=== PATIENT | male | born 1950 | race Caucasian/White ===

== ENCOUNTER 2017-09-09 15:52 | Inpatient (IN) | payer OTHER ==
[2017-09-09] MEDS ORDERED: ONDANSETRON 4 MG/2 ML VIAL IVP ONE (16:01)
[2017-09-09] MEDS ORDERED: fentaNYL 100 MCG/2 ML INJ IVP ONE (16:01)
[2017-09-09] MEDS ORDERED: NS 500 ML IV ONE (16:01)
--- NOTE | 2017-09-09 16:09 | EDPHY ---
H & P Time Seen by Provider: 09/09/17 16:01 HPI/ROS: HPI Fall from ladder. Rib pain, hip pain. 67-year-old male by ambulance from home. He states that he was on a 12-14 foot ladder inside his house putting things away in a storage unit. He started to come down the ladder and slipped falling approximately 12-14 feet landing on his buttocks and back and striking the back of his head as he landed. He is not sure if he lost consciousness. He complains of left-sided lateral lower rib pain and left mid abdominal pain as well as left hip pain. Denies loss of sensation or weakness in his extremities. Denies any significant extremity pain. He reports having a posterior headache. ROS: Constitutional: No fever, no chills. No weakness. Eyes: No discharge. No changes in vision. ENT: No sore throat. No nasal congestion or rhinorrhea. Respiratory: No cough. No shortness of breath. Cardiac: No chest pain, no palpitations. Gastrointestinal: No abdominal pain, no vomiting, no diarrhea. Genitourinary: No hematuria. No dysuria or increased frequency with urination. Musculoskeletal: As above. No neck pain. Skin: No rashes. Neurological: He reports having a posterior headache. No focal weakness or altered sensation. Past medical history: Cirrhosis. Social history: Does not drink alcohol. Nonsmoker. Here by himself currently. Physical Exam: General Appearance: Alert, anxious but not in distress. He is in a cervical collar. This patient is responding to questions appropriately and in full sentences. This patient appears well-hydrated and well-nourished. Head: Normocephalic atraumatic. Face: Facial bones are stable on palpation. Eyes: Pupils equal and round and reactive to light, no pallor or injection. No lid erythema or edema. ENT, Mouth: Mucous membranes moist. Dentition is intact. No malocclusion of the jaw. No tongue lacerations or abrasions. Pharynx is clear. The bilateral nasal canals are clear. No septal hematoma. Respiratory: There are no retractions, lungs are clear to auscultation with good air movement bilaterally. Chest wall is stable to AP and lateral palpation. He has tenderness on palpation mid and posterior axillary line left- sided lower ribs. No ecchymosis or bony deformity noted on palpation of this area. Cardiovascular: Regular rate and rhythm. No murmur. Gastrointestinal: Abdomen is soft and with vague left upper quadrant tenderness on palpation, no masses, bowel sounds normal. Neurological: Motor sensory function is intact. Cranial nerves are normal. Cerebellar function intact. Skin: Warm and dry, no rashes. No lacerations, he has a linear superficial abrasion over the mid tibia left lower extremity. Musculoskeletal: Neck is supple and nontender. The trachea is midline. No midline cervical, thoracic, lumbar or sacral tenderness on palpation. No flank tenderness on palpation. He has tenderness on palpation lateral and medial aspect of left hip. Left hip joint does range without significant pain or impingement. Left lower extremity is neurovascularly intact. Extremities are symmetrical, full range of motion except noted. All joints in the bilateral upper and bilateral lower extremities range without pain or impingement except noted. No tenderness on palpation of the long bones in the bilateral upper and bilateral lower extremities. Psychiatric: No agitation. No depression. Database: EKG: Imaging: CT head and cervical spine: Negative for acute traumatic injury. Results discussed with staff radiologist Dr. Madi Traylor. CT chest abdomen and pelvis with contrast: Significant for left-sided rib fractures 5, 6, 7, 8, 9 posterior lateral with small associated pulmonary contusions left lower lobe. Hemorrhage noted around the spleen but no splenic laceration seen. Small amount of free fluid in the pelvis. Left-sided pubic inferior and superior ramus fractures and left and right sacral ala fractures. Results discussed with staff radiologist Dr. Madi Traylor. Procedures: Emergency department course: IV placed x2. Vital signs reviewed and are stable. Patient will be given fentanyl 50 mcg doses as needed for pain. He received 150 mcg of IV fentanyl prior to arrival. He is in a cervical collar. He will also be given 4 mg of IV Zofran for nausea. He will be sent for CT imaging as above shortly. 5:00 p.m., patient re-evaluated. school lunch monitor shows a narrow complex normal sinus rhythm with ventricular rate of 72. Blood pressure currently 129/82. Pulse oximetry 100% on 2 L by nasal cannula oxygen. Results of CT scans as noted above discussed with the patient and the family. Need for admission to our trauma service discussed. Trauma surgery paged. 5:10 p.m., discussed case with on-call trauma surgeon Dr. Octavio Winchester. He will see this patient shortly in the emergency department. He accepts the patient for admission. Cervical collar will remain in place pending his evaluation. 5:30 p.m., Dr. Winchester is at the patient's bedside. The patient's remaining emergency department course under my care has been uneventful. He was admitted to the trauma service in stable condition. Differential Diagnosis: The differential diagnosis on this patient includes but is not limited to left hip fracture, left-sided rib injuries, splenic laceration, kidney laceration. This represents a partial list of diagnoses considered. These considerations are based on history, physical exam, past history, reassessment and diagnostic testing. Smoking Status: Former smoker Constitutional: Initial Vital Signs Temperature (C) 36.8 C 09/09/17 19:15 Heart Rate 72 09/09/17 19:15 Respiratory Rate 16 09/09/17 19:15 Blood Pressure 137/64 H 09/09/17 19:15 O2 Sat (%) 98 09/09/17 19:15 Allergies/Adverse Reactions: No Known Allergies Allergy (Verified 09/09/17 17:30) Home Medications: Medication Instructions Recorded Rifaximin [Xifaxan] 550 mg PO BID 10/15/13 Herbals/Supplements -Info Only 1 ea PO BID 09/09/17 Lactulose [Enulose] 20 gm PO BID 09/09/17 Multivitamins [Multivitamin (*)] 1 each PO DAILY 09/09/17 Propranolol HCl [Inderal 10mg (*)] 10 - 20 mg PO BID PRN 09/09/17 oxyCODONE IR [Oxycodone Ir (*)] 5 - 10 mg PO BID PRN 09/09/17 Medical Decision Making - Data Points Laboratory Results: 09/09/17 17:02 Patient ABO/Rh A NEGATIVE Antibody Screen NEGATIVE Crossmatch IS Only See Detail Platelet Orders Status READY Medications Given: Acetaminophen (Tylenol) 650 mg PO Q8H BIRD Stop: 03/08/18 17:44 Last Admin: 09/12/17 04:09 Dose: Not Given Bacitracin/Polymyxin B Sulfate (Polysporin) 1 jayme TP TID BIRD Stop: 10/10/17 15:59 Last Admin: 09/11/17 22:07 Dose: 1 jayme Cyclobenzaprine HCl (Flexeril) 10 mg PO Q8H PRN PRN Reason: Spasms Stop: 03/08/18 18:45 Last Admin: 09/12/17 05:25 Dose: 10 mg Hydromorphone HCl (Dilaudid) 0.2 mg IVP Q1H PRN PRN Reason: Pain, Severe Unable to Take PO Stop: 09/19/17 17:42 Last Admin: 09/12/17 05:24 Dose: 0.2 mg Sodium Chloride (Ns) 1,000 mls @ 75 mls/hr IV CONT BIRD Stop: 03/08/18 17:59 Last Admin: 09/11/17 15:58 Dose: 1,000 mls Lactulose (Cephulac) 20 gm PO BID BIRD Stop: 03/08/18 20:59 Last Admin: 09/11/17 20:27 Dose: 20 gm Miscellaneous Information (Patch Removal) 1 ea TD DAILY21 BIRD Stop: 03/08/18 20:59 Last Admin: 09/11/17 20:28 Dose: 1 ea Miscellaneous Medication (Icy Hot Lidocaine/Menthol 4%/1% Patch) 1 patch TD DAILY BIRD Stop: 03/08/18 17:44 Last Admin: 09/11/17 08:15 Dose: 1 patch Rifaximin (Xifaxan) 550 mg PO BID BIRD PRN Reason: Protocol Stop: 10/09/17 20:59 Last Admin: 09/11/17 20:27 Dose: 550 mg Discontinued Medications Acetaminophen (Tylenol) 1,000 mg PO Q8H BIRD Stop: 03/08/18 17:44 Last Admin: 09/09/17 22:47 Dose: Not Given Famotidine (Pepcid) 20 mg PO BID BIRD Stop: 03/09/18 08:59 Last Admin: 09/11/17 08:15 Dose: 20 mg Fentanyl (Sublimaze) 50 mcg IVP EDNOW ONE Stop: 09/09/17 16:02 Last Admin: 09/09/17 16:10 Dose: 100 mcg Hydromorphone HCl (Dilaudid) 0.5 mg IVP EDNOW ONE Stop: 09/09/17 16:49 Last Admin: 09/09/17 17:01 Dose: 0.5 mg Hydromorphone HCl (Dilaudid) 0.5 mg IVP ONCE ONE Stop: 09/09/17 17:21 Last Admin: 09/09/17 18:16 Dose: 0.5 mg Sodium Chloride (Ns) 500 mls @ 0 mls/hr IV ONCE ONE; Wide Open PRN Reason: Protocol Stop: 09/09/17 16:02 Last Admin: 09/09/17 16:15 Dose: 500 mls Famotidine/Sodium Chloride (Pepcid 20 Mg (Premix)) 50 mls @ 200 mls/hr IV Q12HRS BIRD Stop: 03/08/18 20:59 Last Admin: 09/09/17 19:50 Dose: 50 mls Ketamine HCl 500 mg/ Dextrose 510 mls @ 0 mls/hr IV CONT BIRD; Per Protocol PRN Reason: Protocol Stop: 03/08/18 17:44 Last Admin: 09/11/17 04:56 Dose: 510 mls Ketorolac Tromethamine (Toradol) 30 mg IVP Q6HRS BIRD Stop: 09/14/17 17:59 Last Admin: 09/09/17 18:19 Dose: 30 mg Ketorolac Tromethamine (Toradol) 15 mg IVP Q6HRS BIRD Stop: 09/14/17 17:59 Last Admin: 09/12/17 05:24 Dose: 15 mg Ondansetron HCl (Zofran) 4 mg IVP EDNOW ONE Stop: 09/09/17 16:02 Last Admin: 09/09/17 16:10 Dose: 4 mg Departure - Departure Disposition: [facility] Inpatient Acute Clinical Impression: Fall from ladder, Multiple fractures of ribs of left side, Left pulmonary contusion, Splenic hemorrhage, Sacral fracture, closed, Bilateral pubic rami fractures
[2017-09-09] MEDS ORDERED: IOPAMIDOL (ISOVUE 370) 100 ML BTL IV ONE (16:19)
[2017-09-09 16:28] LABS: INR 1.28 (0.83-1.16); PROTIME(PATIENT) 16.2 SEC (12.0-15.0)
[2017-09-09] MEDS ORDERED: HYDROmorphONE/DILAUDID 2 MG/ML INJ IVP ONE (16:48)
[2017-09-09] MEDS ORDERED: HYDROmorphONE/DILAUDID 1 MG/ML INJ ONE (16:55)
[2017-09-09] MEDS: HYDROmorphONE/DILAUDID 1 MG/ML INJ IVP ONE ×2 (17:27→18:16)
[2017-09-09] MEDS ORDERED: NALOXONE HCL 0.4 MG/ML INJ IVP PRN (17:43)
[2017-09-09] MEDS ORDERED: ONDANSETRON 4 MG/2 ML VIAL IVP PRN (17:43)
[2017-09-09] MEDS ORDERED: ACETAMINOPHEN 500 MG TAB PO SCH (17:45)
[2017-09-09] MEDS ORDERED: PROPRANOLOL HCL 10 MG TAB PO PRN (17:53)
[2017-09-09] MEDS ORDERED: KETOROLAC 30 MG/1 ML SDV IVP SCH (18:00)
[2017-09-09] MEDS ORDERED: HYDROmorphONE/DILAUDID 1 MG/ML INJ IVP PRN (18:06)
--- NOTE | 2017-09-09 19:28 | GHP ---
[f rep st] PREOP HISTORY AND PHYSICAL DATE OF ADMISSION: 09/09/2017 He was using a ladder to put Dev decorations in an storage area which is approximately 14 feet off the ground. He was on a ladder. His foot got stuck, and he was reaching down to try to free it. The ladder toppled over backwards. He landed on a hardwood floor and felt his head bounce off the floor. There was no loss of consciousness. He yelled for his , who came in and called 911. His last meal was at 10:00 a.m. this morning, consisting of a smoothie and oatmeal. He presented as limited trauma and was seen by Hesham Torres. He has remained quite stable. His injuries include fractures of left ribs 6, 7, 8, and 9; left lower lobe contusion; a calcified granuloma near the hilum. He has cervical spondylolisthesis at C5-6 and C6-7 with mild canal narrowing and bilateral neural foraminal narrowing. He has bilateral sacral ala fractures. He has a left superior and inferior pubic ramus fracture. He has a right superior pubic ramus fracture. He has a small amount of perisplenic fluid and fluid in the pelvis. He has hepatic and splenic granulomas. He does have constipation and has cirrhosis. He is complaining of moderately severe pain with breaths. He smoked from ages 16 until present, stopping for 8 years approximately a year and a half ago. At the peak, he smoked 1/2 pack a day. He does not drink currently. He has no known drug allergies. He takes herbal supplements, multivitamins. He takes oxycodone IR for chronic pain. He takes lactulose 10 g twice a day. He takes Inderal 10 mg to 20 mg twice a day, and he takes rifaximin 550 mg daily. Lactose, propanolol, and rifaximin are because of his cirrhosis. He was in the in [place] and contracted hepatitis C. There is no history of rheumatic fever or tuberculosis. He had a piece of tempered glass partially amputate his right wrist. He is not sure whether he had a transfusion or not. The artery was injured, and some partial tendon injury occurred as well. His cirrhosis is thought to be due to a combination of the hepatitis C and alcohol use. He has had a concussion. He complains that his left eye is occasionally cloudy, etiology unclear, but it seems to resolve with the use of a topical [employer] agent. He has 4 dental implants. REVIEW OF SYSTEMS: Otherwise quite negative. There are no limits on his activities. No history of steroid use. PHYSICAL EXAMINATION: GENERAL: He is awake, alert, and pleasant. VITAL SIGNS : His initial blood pressure is 161/85, heart rate 64, respirations 16. NEUROLOGIC: He is alert and oriented x3. [place] Coma Scale is 15. 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 He can wiggle his fingers and toes. I do not detect any focal lateralizing neurologic findings. HEAD: His skull is normocephalic and atraumatic. Even though he bumped his head, there is no contusion identified. CT of his head was negative. NECK: He is in a C- collar. His CT of his neck was negative except for the chronic changes noted above. His neck is palpably normal without tenderness. He has full range of motion without tenderness. His neck is cleared at 6:30 p.m. MUSCULOSKELETAL: His right clavicle is unremarkable. His right upper extremity is unremarkable except for where he was previously repaired from the glass injury. He does have full flexor and extensor tendon function. Left upper extremity and left clavicle are unremarkable with full range of motion, though it does cause some discomfort in his chest. LUNGS: Breath sounds are equal bilaterally. CARDIAC : Shows S1, S2 to be normal. Normal split of S2 without murmurs, rubs, or gallops. ABDOMEN: Soft and nontender, with hypoactive bowel sounds. CT of the chest has the above-mentioned findings. The CT of the abdomen has the findings of the small amount of hemoperitoneum, the perisplenic fluid, as well as granulomatous changes in the liver and spleen. There are the bilateral sacral ala fractures, bilateral superior pubic ramus fractures, and left inferior pubic ramus fracture. There are abrasions over his right anterior alvarado. His hematocrit was 40. His INR was 1.2. His sodium was 143. Potassium was 3.6. His creatinine was 0.8. BUN was 13. Urine specific gravity was 1.035. There were 50-180 red cells per high-power field. His INR was 1.28. Followup hematocrit is pending. IMPRESSION: Patient with fall and multiple injuries. PLAN: ICU admission. Will use Tylenol, Toradol, ketamine, Dilaudid, and Lidoderm patch. /[id number]/MODL MTDD
[2017-09-09] MEDS: HYDROmorphONE/DILAUDID 1 MG/ML INJ IVP PRN (19:50)
[2017-09-09] MEDS: CYCLOBENZAPRINE 10 MG TAB PO PRN (19:50)
[2017-09-09] MEDS: ACETAMINOPHEN 325 MG TAB PO SCH (20:02)
[2017-09-09] MEDS: KETAMINE 500 MG in D5W 500 ML IV SCH (20:59)
[2017-09-09] MEDS ORDERED: FAMOTIDINE 20 MG/NACL 50 ML IV SCH (21:00)
[2017-09-09] MEDS: LIDOCAINE 4%/MENTHOL 1% PATCH TD SCH (22:11)
[2017-09-09] MEDS: PATCH REMOVAL 1 EA PATCH TD SCH (22:11)
[2017-09-09] MEDS: RIFAXIMIN 550 MG TAB PO SCH (22:39)
[2017-09-09] MEDS: LACTULOSE 20 GM/30 ML UDCUP PO SCH (22:39)
[2017-09-10] MEDS: KETOROLAC 30 MG/1 ML SDV IVP SCH ×4 (01:30→18:08)
[2017-09-10] MEDS: ACETAMINOPHEN 325 MG TAB PO SCH ×3 (01:59→18:08)
[2017-09-10] MEDS: HYDROmorphONE/DILAUDID 1 MG/ML INJ IVP PRN ×3 (07:20→17:58)
[2017-09-10] MEDS: LIDOCAINE 4%/MENTHOL 1% PATCH TD SCH (08:32)
[2017-09-10] MEDS: FAMOTIDINE 20 MG TAB PO SCH ×2 (08:32→22:17)
[2017-09-10] MEDS: RIFAXIMIN 550 MG TAB PO SCH ×2 (08:32→22:17)
[2017-09-10] MEDS: LACTULOSE 20 GM/30 ML UDCUP PO SCH ×2 (08:33→22:18)
--- NOTE | 2017-09-10 09:30 | ASMTCMCOM ---
CM Note CM Note Notes: 67yr old male fell from a ladder, admitted forl: multiple rib fx's, pubic fx's, sacral fx, splenic hemorrhage. He has a hx of smoking, ETOH, constipation, Hep C, cirrhosis. Patient lives with his . Therapies are working with him to determine discharge needs. CM to follow. Date Signed: 09/10/2017 09:29 AM Electronically Signed By:Lidia Castillo LCSW
--- NOTE | 2017-09-10 11:52 | PDMN ---
Medical Necessity Medical necessity: Pt meets IP criteria per MD; est los >2 mn for eval/tx of multiple rib fxs, pubic ramis fx, bilateral sacral fxs, pulmonary contusion & splenic hemorrhage r/t mechanical fall; admit to ICU for close monitoring, IV Ketamine, IVFs & therapies; hx cirrhosis; per H&P & order 09/09/17
--- NOTE | 2017-09-10 12:50 | TRAUMAPNT ---
Trauma Tertiary Progress Note New Findings: No new findingd Assessment/Plan: PAD#1 09/10/2017 Assessment: Doing well. VSS, No PTX, No Pleural fluid collection, Abdomen soft with + bowel sounds. Passing flatus. Standing with assistance. Adequate urine output Hct continues to drop. Plan: Follow up CT abd/pelvis Continue NPO, Follow HCT. No transfusion yet Subjective: I'm hungry Objective: Vital Signs Temp Pulse Resp BP Pulse Ox 37.1 C 85 17 114/58 L 100 09/10/17 04:00 09/10/17 12:00 09/10/17 12:00 09/10/17 12:00 09/10/17 12:00 Laboratory Results 09/10/17 11:40 09/09/17 20:00 09/09/17 09/10/17 09/11/17 05:59 05:59 05:59 Intake Total 1390 Output Total 420 Balance 970 PT 16.2 SEC (12.0-15.0) H 09/09/17 16:10 INR 1.28 (0.83-1.16) H 09/09/17 16:10 - C-Spine Clearance Cervical Spine Cleared: Yes Provider who Cleared Cervical Spine: Annabella Physical Exam - Physical Exam General Appearance: WD/WN, alert, mild distress Neck: non-tender, full range of motion, supple Respiratory: lungs clear, normal breath sounds, other (Chest tender in left posterior lateral region) Cardiac/Chest: regular rate, rhythm Abdomen: normal bowel sounds, non-tender, soft Male Genitalia: deferred Rectal: deferred Back: Normal inspection Skin: normal color, other (abrasion on right back) Extremities: normal range of motion, non-tender Neuro/Psych: no motor/sensory deficits, alert, normal mood/affect, oriented x 3 Time Spent w/Patient (minutes): 25
[2017-09-10 13:18] LABS: PLATELET COUNT 44 10^3/uL (150-400)
[2017-09-10] MEDS ORDERED: IOPAMIDOL (ISOVUE 370) 100 ML BTL IV ONE (14:49)
[2017-09-10] MEDS: BACITRACIN/POLYMYXIN B SULFATE 28.3 GM TUBE TP SCH ×2 (16:12→22:18)
[2017-09-10] MEDS: NS 1,000 ML IV SCH (17:58)
[2017-09-10] MEDS: PATCH REMOVAL 1 EA PATCH TD SCH (22:18)
--- NOTE | 2017-09-10 22:18 | GCON ---
[f rep st] CONSULTATION PULMONARY CRITICAL CARE CONSULTATION DATE OF CONSULTATION: 09/10/2017 REASON FOR CONSULTATION: Intensive care unit evaluation and medical management following multiple in juries related to a fall. HISTORY: The patient fell from a ladder backwards. He apparently landed on his buttocks. His head di d hit the floor, but there was no loss of consciousness. 911 was called. In the emergency department, he was found to have left-sided rib fractures of 6, 7, 8 and 9, a left lower lobe contusion, and jensen ateral pelvic fractures, including fractures of his sacrum and inferior and superior pubic ramus. The re was a small laceration of the spleen. His primary complaint was that of significant pain. He was a dmitted to the intensive care unit, on pain medications. He was placed on a ketamine drip. PAST MEDICAL HISTORY: He has a history of hepatitis C and cirrhosis. He is on medications for this, including lactulose, rifaximin, and Inderal. He has a history of chronic pain and takes oxycodone. He does have a history of alcohol use in the past. He is not currently drinking. ALLERGIES: No known drug allergies. SOCIAL HISTORY: The patient is , with a supportive family. He smoked cigarettes in the past, not currently. Current alcohol is denied. FAMILY HISTORY: Noncontributory. REVIEW OF SYSTEMS: Negative, except as outlined above. PHYSICAL EXAMINATION: GENERAL: Reveals a gentleman who appears fit, younger than his stated age. He is experiencing some pain at the time of my examination. This is on his left side. VITAL SIGNS: Blood pressure is 120/60, heart rate 80 with sinus rhythm on the monitor. Respiratory rate is 12. On 1 L o xygen, saturations are in the 90s. He is afebrile. HEENT: Unremarkable for lymphadenopathy or thyrome katie. There are no signs of trauma. Pupils are equal. Nasal cannula oxygen is in place. There is no j ugular venous distention. LUNGS: Breath sounds are diminished. He is splinting on the left. No abnorm al sounds are appreciated, but he is not moving much air. HEART: Regular in rate and rhythm. There ar e no significant murmurs. ABDOMEN: Remarkable for decreased bowel sounds and tenderness, more so on the left. Deep palpation was not attempted. : No Lew catheter is in place. EXTREMITIES: Unremarka ble. There is no edema, no tenderness. PELVIS: Not directly examined. NEUROLOGIC: Nonfocal. Cognition is intact. He did stand with a walker earlier today. DATABASE: Radiologic studies are as outlined above. Laboratory: Hematocrit is 25.6, stable from this morning, but down from 37.4 on admission. Platelets are 44,000, down from 51,000 earlier. PT is 16, with a PTT of 27. Chemistries are within normal limit s. Liver function studies are normal. Albumin is 3.3. Urinalysis on admission showed red blood cells and a high specific gravity. Blood alcohol was less than 10. ASSESSMENT: 1. Status post mechanical fall with multiple injuries as outlined above. These include rib fractures , small splenic laceration, and fractures of the pelvis. He is in significant pain secondary to these injuries, is on a ketamine drip and IV Dilaudid p.r.n. He also has a Lidoderm patch in place related to his ribs. Episodes of increased pain may be secondary to muscle spasm. Flexeril has been added. 2. Acute blood loss anemia. His hematocrit has drifted down but appears to be stable. This will be f ollowed. 3. History of cirrhosis. His regular medications as outlined above will be continued. 4. Deep vein thrombosis prophylaxis: SCDs only secondary to the risk of ongoing blood loss. 5. Gastrointestinal prophylaxis: On famotidine. 6. Metabolic: No issues currently identified. 7. Thrombocytopenia, likely related to underlying cirrhosis. CBC will be followed. PLAN AND RECOMMENDATIONS: The patient will be kept in the intensive care unit. A ketamine drip will be continued for pain, along with p.r.n. IV Dilaudid. Intravenous fluids will be given as his appetit e is poor. His usual medications will be continued, unless nausea is a significant issue. Zofran has been ordered. Laboratory and chest x-ray will be followed. Further plans and recommendations will be made based on his progress over the next 12-24 hours. /[id number]/MODL
[2017-09-11] MEDS: KETOROLAC 30 MG/1 ML SDV IVP SCH ×4 (00:01→17:15)
[2017-09-11] MEDS: ACETAMINOPHEN 325 MG TAB PO SCH ×3 (04:01→17:15)
[2017-09-11 04:38] LABS: PLATELET COUNT 37 10^3/uL (150-400)
[2017-09-11] MEDS: KETAMINE 500 MG in D5W 500 ML IV SCH (04:56)
[2017-09-11] MEDS: HYDROmorphONE/DILAUDID 1 MG/ML INJ IVP PRN ×4 (06:10→16:17)
[2017-09-11] MEDS: FAMOTIDINE 20 MG TAB PO SCH (08:15)
[2017-09-11] MEDS: LIDOCAINE 4%/MENTHOL 1% PATCH TD SCH (08:15)
[2017-09-11] MEDS: LACTULOSE 20 GM/30 ML UDCUP PO SCH ×2 (08:15→20:27)
[2017-09-11] MEDS: BACITRACIN/POLYMYXIN B SULFATE 28.3 GM TUBE TP SCH ×3 (08:15→22:07)
[2017-09-11] MEDS: RIFAXIMIN 550 MG TAB PO SCH ×2 (08:15→20:27)
--- NOTE | 2017-09-11 14:19 | ASMTCMCOM ---
CM Note CM Note Notes: Family meeting was held today with patient's , Medardo, Ronaldo, Jodi Perez, door manager and myself, case management. Patient's was in the hospital approximately 3 weeks ago and is currently in another episode of her diverticulitis. Medardo reports they have just moved back into their house from a complete remodel and they are in the proces of selling their house in [place]. Medardo is stressed and unable to cope well with patient's accident presently. She requests help with talking to patient about length of recovery he is facing and understanding for her taking time to attend to all the details of living right now without him. She states it will help patient to have a dvd player for movies and Ronaldo will make arrangements for one to be set up in his room. (Facilities can help with this) She hopes this will help patient since he cannot read due to the medicine. We also discussed d/c plan and the fact that patient will most likely need rehab. This is a relief to patient's who doesn't feel she will be equipped to handle all of his needs when he first d/c'es from the hospital. Medardo is concerned he will be a "cripple" and unable to function back at his baseline. Patient's daughter (age 24) has been through several changes as well over the past 6 months and has shingles. Medardo does not want to add to her stress levels so daughter's involvement will be limited. Medardo states her has some cognitive decline from his cirohisis, particularly short term memory function. Will convey this to patient's nurse. CM will follow for d/c needs and coordinate with patient and Medardo. Date Signed: 09/11/2017 02:18 PM Electronically Signed By:Fatoumata Irvin LCSW
--- NOTE | 2017-09-11 15:17 | TRAUMAPN ---
Trauma Progress Note Assessment/Plan: PAD#1 09/10/2017 Assessment: Doing well. VSS, No PTX, No Pleural fluid collection, Abdomen soft with + bowel sounds. Passing flatus. Standing with assistance. Adequate urine output Hct continues to drop. Plan: Follow up CT abd/pelvis Continue NPO, Follow HCT. No transfusion yet PAD#2 09/11/2017 Assessment: Hct, platelets and urine output down. Responded to platelet and PRBC transfusion. Etiology unclear - further bleeding, loss in to lab, doubt hemolysis, possibly recruitment of edema fluid is contributing. Importantly he is stable, awake and alert. He is eating and has no specific complaints. I have asked Dr. Bell to assess his pelvis from an orthopedic point of view. Plan: Continue supportive care. Subjective: I'm feeling better but its uncomfortable when I stand Objective: Vital Signs Temp Pulse Resp BP Pulse Ox 36.8 C 84 14 118/51 L 97 09/11/17 12:00 09/11/17 14:00 09/11/17 14:00 09/11/17 14:00 09/11/17 14:00 Laboratory Results 09/11/17 13:15 09/11/17 03:50 09/10/17 09/11/17 09/12/17 05:59 05:59 05:59 Intake Total 1390 3007 Output Total 420 675 Balance 970 2332 PT 16.2 SEC (12.0-15.0) H 09/09/17 16:10 INR 1.28 (0.83-1.16) H 09/09/17 16:10 - C-Spine Clearance Cervical Spine Cleared: Yes Provider who Cleared Cervical Spine: Annabella Physical Exam - Physical Exam General Appearance: WD/WN, alert, mild distress Neck: non-tender, full range of motion, supple Respiratory: lungs clear, normal breath sounds, other (left lower chest is tender) Cardiac/Chest: regular rate, rhythm Abdomen: normal bowel sounds, non-tender, soft Male Genitalia: deferred Rectal: deferred Back: Normal inspection Skin: normal color, warm/dry Neuro/Psych: no motor/sensory deficits, alert, normal mood/affect, oriented x 3 Time Spent w/Patient (minutes): 25
[2017-09-11] MEDS: NS 1,000 ML IV SCH (15:58)
--- NOTE | 2017-09-11 16:52 | PDINTPN ---
Medicare Contact Specialist Progress Note Assessment/Plan: Assessment: Status post fall from a ladder Rib fractures, pulmonary contusion. Most of his pain, at least when he is in bed, is related to his ribs. Small splenic laceration Pelvic fractures. Orthopedic consultation requested. Anemia: Hematocrit continues to drop. There is no evidence of obvious bleeding however oozing from his various fractures and splenic laceration may be playing a role. 1 unit of platelets and blood given today. Thrombocytopenia: Platelets low on admission at 51. 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 Metabolic: No issues identified. Cirrhosis: On rifaximin and lactulose, propranolol. Plan: Continue care in Pain Management in the intensive care unit. Follow CBC. Continue his routine medications for cirrhosis. Increase ambulation if okay with Orthopedics. This likely will cause increasing pain. 35 min of critical care time spent directly with the patient. Discussed with the patient and his , surgery, nursing, and the ICU multi disciplinary team. Subjective: Still with left-sided chest pain, but somewhat better today. Objective: Vital Signs Temp Pulse Resp BP Pulse Ox 36.8 C 94 14 129/66 H 97 09/11/17 12:00 09/11/17 16:00 09/11/17 16:00 09/11/17 16:00 09/11/17 16:00 Laboratory Results 09/11/17 13:15 09/11/17 03:50 09/10/17 09/11/17 09/12/17 05:59 05:59 05:59 Intake Total 1390 3007 Output Total 420 675 Balance 970 2332 PT 16.2 SEC (12.0-15.0) H 09/09/17 16:10 INR 1.28 (0.83-1.16) H 09/09/17 16:10 Laboratory Tests 09/11/17 09/11/17 09/11/17 03:50 03:50 09:42 WBC 3.49 L RBC 2.17 L Hgb 7.0 L Hct 20.5 L Plt Count 37 L 74 L Calcium 7.6 L Total Bilirubin 0.7 AST 21 Albumin 2.4 L CXR: No significant changes. Rib fractures and changes at the left base consistent with a contusion, possible small effusion Physical Exam - Physical Exam General Appearance: alert, no apparent distress EENT: other (Nasal cannula at 1 L) Neck: normal inspection (No JVD) Respiratory: lungs clear (Anteriorly), decreased breath sounds (At bases), No rales, No rhonchi Cardiac/Chest: regular rate, rhythm Abdomen: normal bowel sounds, non-tender, soft Male Genitalia: other (Decreased urine output) Skin: warm/dry, pallor Extremities: No pedal edema Neuro/Psych: no motor/sensory deficits, No cognition abnormalities ICD10 Worksheet Patient Problems: Problems Problem Status Onset Fall from ladder Acute Multiple fractures of ribs of left side Acute Left pulmonary contusion Acute Splenic hemorrhage Acute Sacral fracture, closed Acute
[2017-09-11] MEDS: CYCLOBENZAPRINE 10 MG TAB PO PRN (17:15)
[2017-09-11] MEDS: PATCH REMOVAL 1 EA PATCH TD SCH (20:28)
--- NOTE | 2017-09-11 22:28 | PDCONSULT ---
Shagger Note: Orthopaedic Consult Note DOS: 09/11/2017 HPI: Called to pt bedside in ICU by Dr. 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 Pt was moving [employer] lights and fell off a ladder. He fell backwards and landed on his back. He was admitted to the ICU. He had rib fractures and sacral fractures noted. I was consulted to evaluate his sacral fractures. He has had a ferreira catheter in but has not had any bowel incontinence. He states that moving his Left arm is difficult due to rib pain but was able to stand on his bialteral feet and possibly briefly on each leg individually earlier today. He had pelvic films done today after that mobilization. PMHx: Includes Hepatatis C and cirrhosis PSHx: Includes prior RIght arm forearm deep revascularization, nerve repair FamHx: noncontributory SocHx: smoking [place] sweet cigarettes regularly until three days ago. 0-3 cigarettes per day. Drinks alcohol, possible high volume drinker previously ROS: Was in usual good state of health prior to injury and quite active without major active issues across multiple systems. PE: AxO for name, city, date, and [place] president. Said facility was "[facility]" Conversant, but does struggle for specific words at times. Minimally confused with certain questions, but otherwise answering most questions well and coherently. Regular breathing, unlabored, in bed RUE: elevates arm above head. FROM. SILT A/R/U/M. 08/17 EPL/APB/FDS/FDP2,5/IO, 2+ radial pulse. Well healed volar forearm scar LUE: difficulty elevating arm 2/2 Left rib pain. But No TTP along length of arm. 08/17 EPL/APB/FDS/FDP2,5/IO. SILT A/R/U/M. 2+ radial pulse BLE: SILT S/S/SP/DP/T. / EHL/FHL/TA/GS/Q. 2+ DP pulses. No pain to log roll Perianal sensation intact to pin/sharp touch. Circumferential sphincter tone intact with ability to bear down. Intact bulbocavernosus reflex. TTP Bilateral pubic rami around symphysis. TTP L>R sacrum. large ecchymotic lesion along Left posterior hip/buttock that is tender, but not fluctuant. Imaging: XR pelvis shows no significant vertical shear of pelvis. <1cm displacement of sacral fractures. CT shows Left superior and inferior pubic rami fractures. Right superior ramus fracture close to symphysis. Left sacral fractures (moni 2) through ala and foramina, but inferior sacrum appears in continuity and there is minimal displacement. Right sacral ala fracture. No notable diastasis of SI or sacral fractures. A/P: 67y M p/w B sacral fractures and rami fractures and left buttock contusion - stable pelvis after mobilization: LLE Touch down weightbearing, and RLE WBAT - Monitor Left buttock wound for improvement. Does not appear to be [place]- [place] lesion, but rather large contusion without free fluid collection. - Repeat Pelvic inlet/outlet/AP films once patient more ambulatory to check on pelvic stability - Followup with me in 2-3 weeks for repeat pelvic films and to check on status
[2017-09-12] MEDS: KETOROLAC 30 MG/1 ML SDV IVP SCH ×2 (00:06→05:24)
[2017-09-12 03:28] LABS: PLATELET COUNT 50 10^3/uL (150-400)
[2017-09-12 03:35] LABS: INR 1.47 (0.83-1.16)
[2017-09-12] MEDS: ACETAMINOPHEN 325 MG TAB PO SCH ×3 (04:09→18:20)
[2017-09-12] MEDS: HYDROmorphONE/DILAUDID 1 MG/ML INJ IVP PRN ×4 (05:24→16:11)
[2017-09-12] MEDS: CYCLOBENZAPRINE 10 MG TAB PO PRN ×2 (05:25→20:06)
--- NOTE | 2017-09-12 09:04 | CPEKG ---
Heart Rate: 87 RR Interval: 690 P-R Interval: 136 QRSD Interval: 76 QT Interval: 376 QTC Interval: 453 P Callaway: 69 QRS Callaway: 52 EKG Severity - ABNORMAL ECG - EKG Impression: SINUS RHYTHM EKG Impression: MULTIPLE VENTRICULAR PREMATURE COMPLEXES EKG Impression: BORDERLINE T ABNORMALITIES, DIFFUSE LEADS Electronically Signed By: Guru Tatum 12-Sep-2017 11:37:35
[2017-09-12] MEDS: RIFAXIMIN 550 MG TAB PO SCH ×2 (09:11→21:01)
[2017-09-12] MEDS: HYDROmorphONE/DILAUDID 2 MG TAB PO PRN ×4 (09:11→23:50)
[2017-09-12] MEDS: LACTULOSE 20 GM/30 ML UDCUP PO SCH ×2 (09:11→21:01)
[2017-09-12] MEDS: LIDOCAINE 4%/MENTHOL 1% PATCH TD SCH (09:11)
[2017-09-12] MEDS: BACITRACIN/POLYMYXIN B SULFATE 28.3 GM TUBE TP SCH ×3 (09:12→23:51)
[2017-09-12] MEDS: PHYTONADIONE 2.5 MG/2.5 ML ORAL UDL PO SCH (11:05)
--- NOTE | 2017-09-12 16:17 | PDINTPN ---
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 Most of his pain, at least when he is in bed, is related to his ribs. Stable. Small splenic laceration Pelvic fractures. Orthopedic consultation requested. Anemia: Chronic plus acute blood loss. Hematocrit has dropped, 21 today, but stable. There is no evidence of obvious bleeding however oozing from his various fractures and splenic laceration likely are playing a role. Given blood and platelets yesterday. Pancytopenia/Thrombocytopenia: Platelets low on admission at 51. 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 Will give TXA Metabolic: No issues identified. Cirrhosis: On rifaximin and lactulose, propranolol. INR slightly out. Will give vitamin K. Plan: Continue care and pain management in the intensive care unit. Follow CBC. Continue his routine medications for cirrhosis. Increase ambulation, realizing this is going to be associated with more pelvic pain. Follow laboratory, H&H. Give more blood and platelets if needed. Follow x-ray intermittently at this point. 30 min of critical care time spent directly with the patient. Discussed with the patient and his , surgery, nursing, and the ICU multi disciplinary team. Subjective: Chest pain on left remains present but seems to be better. Increased pelvic pain with ambulation, as expected. Objective: Vital Signs Temp Pulse Resp BP Pulse Ox 36.7 C 93 16 110/63 94 09/12/17 12:00 09/12/17 14:00 09/12/17 14:00 09/12/17 14:00 09/12/17 14:00 Laboratory Results 09/12/17 15:53 09/12/17 03:20 09/11/17 09/12/17 09/13/17 05:59 05:59 05:59 Intake Total 3007 1749 Output Total 675 2075 Balance 2332 -326 PT 18.0 SEC (12.0-15.0) H 09/12/17 03:20 INR 1.47 (0.83-1.16) H 09/12/17 03:20 Laboratory Tests 09/12/17 09/12/17 09/12/17 03:20 03:20 03:20 WBC 2.83 L Hgb 7.4 L Hct 20.7 L Plt Count 50 L PT 18.0 H INR 1.47 H Calcium 7.4 L Total Bilirubin 0.7 AST 25 ALT 33 Ammonia Total Protein 4.6 L Albumin 2.5 L 09/12/17 07:17 WBC Hgb Hct Plt Count PT INR Calcium Total Bilirubin AST ALT Ammonia < 9.0 L Total Protein Albumin CXR: About the same, with haziness at the medial left base consistent with probable pulmonary contusion. Rib fractures per Physical Exam - Physical Exam General Appearance: alert, no apparent distress, other (Lying flat in bed) EENT: PERRL/EOMI, other (Nasal cannula at 2 L) Neck: normal inspection Respiratory: lungs clear (Anteriorly), decreased breath sounds (At bases), splinting (Cannot take a deep breath), No rales, No rhonchi Cardiac/Chest: regular rate, rhythm Abdomen: non-tender, soft, No normal bowel sounds (Decreased, present) Male Genitalia: other (Lew catheter in place, to be removed) Skin: warm/dry, pallor Extremities: No pedal edema Neuro/Psych: no motor/sensory deficits, No cognition abnormalities ICD10 Worksheet Patient Problems: Problems Problem Status Onset Bilateral pubic rami fractures Acute Fall from ladder Acute Left pulmonary contusion Acute Multiple fractures of ribs of left side Acute Sacral fracture, closed Acute Splenic hemorrhage Acute
[2017-09-12] MEDS: TRANEXAMIC ACID 650 MG TAB PO SCH ×2 (18:20→21:02)
--- NOTE | 2017-09-12 20:55 | SOAPPROG ---
SOAP Progress Note Assessment/Plan: Assessment: 67 male with multi trauma from ladder fall left rib fxs stable left lung contusion stable on cxr mutiple pelvic fxs stable but problematic for ambulation hct slowly dropping with stable vs heent ok chest clear and symmetric cor rr abd soft, nontender afebrile Plan:pt/ rehab eval/ dc ferreira/ trans to sdu 09/12/17 20:51 Objective: Vital Signs Temp Pulse Resp BP Pulse Ox 37.7 C 95 16 111/78 97 09/12/17 18:00 09/12/17 20:00 09/12/17 20:00 09/12/17 20:00 09/12/17 20:00 Laboratory Results 09/12/17 15:53 09/12/17 03:20 09/11/17 09/12/17 09/13/17 05:59 05:59 05:59 Intake Total 3007 1749 Output Total 675 2075 800 Balance 2332 -326 -800 PT 18.0 SEC (12.0-15.0) H 09/12/17 03:20 INR 1.47 (0.83-1.16) H 09/12/17 03:20 ICD10 Worksheet Patient Problems: Problems Problem Status Onset Bilateral pubic rami fractures Acute Fall from ladder Acute Left pulmonary contusion Acute Multiple fractures of ribs of left side Acute Sacral fracture, closed Acute Splenic hemorrhage Acute
[2017-09-12] MEDS: PATCH REMOVAL 1 EA PATCH TD SCH (23:51)
[2017-09-13 05:19] LABS: PLATELET COUNT 58 10^3/uL (150-400)
[2017-09-13 05:27] LABS: INR 1.36 (0.83-1.16); PROTIME(PATIENT) 16.9 SEC (12.0-15.0)
[2017-09-13] MEDS: HYDROmorphONE/DILAUDID 2 MG TAB PO PRN ×3 (05:44→17:08)
[2017-09-13] MEDS: CYCLOBENZAPRINE 10 MG TAB PO PRN ×2 (05:44→14:29)
[2017-09-13] MEDS: ACETAMINOPHEN 325 MG TAB PO SCH ×3 (06:23→21:41)
--- NOTE | 2017-09-13 08:28 | TRAUMAPN ---
Trauma Progress Note - Problem/Surgery Performed (1) Bilateral pubic rami fractures Assessment/Plan: remains hemodynamically stable with moderate soft tissue blood loss due to fractures Qualifiers: Encounter type: initial encounter (2) Fall from ladder Assessment/Plan: mechanism of injury/patient denies LOC Qualifiers: Encounter type: initial encounter Qualified Code(s): W11.XXXA - Fall on and from ladder, initial encounter (3) Multiple fractures of ribs of left side Assessment/Plan: primary source of pain at this time/not a great candidate for epidural due to thrombocytopenia Qualifiers: Encounter type: initial encounter (4) Sacral fracture, closed Qualifiers: Encounter type: initial encounter (5) Hemothorax on left Assessment/Plan: secondary to rib fractures/will need evacuation if enlarging (6) Thrombocytopenia Assessment/Plan: stable platlet count above 50K will continue to monitor (7) Cirrhosis of liver Assessment/Plan: multifactorial, Hep C + prior EtOH Qualifiers: Hepatic cirrhosis type: unspecified hepatic cirrhosis Ascites presence: without ascites Qualified Code(s): K74.60 - Unspecified cirrhosis of liver (8) LAD (lymphadenopathy), mediastinal Assessment/Plan: chronic/prior Histoplasmosis exposure in [place] (9) Splenic laceration Assessment/Plan: possible low grade lac on initial CT/small amount of peritoneal fluid Qualifiers: Encounter type: initial encounter Qualified Code(s): S36.039A - Unspecified laceration of spleen, initial encounter Assessment/Plan: continue increasing activity as tolerated/pain control and pulmonary toilet monitor H/H, platlets [employer] VTE prophylaxis for now, continue SCDs transfer to med-surg/PT + OT to continue Subjective: Ray reports pain left chest with coughing, deep breathing, movement He denies nausea/emesis/abd pain Objective: Vital Signs Temp Pulse Resp BP Pulse Ox 37.7 C 99 20 133/50 H 99 09/12/17 18:00 09/13/17 08:00 09/13/17 08:00 09/13/17 08:00 09/13/17 08:00 Laboratory Results 09/13/17 05:10 09/13/17 05:10 09/12/17 09/13/17 09/14/17 05:59 05:59 05:59 Intake Total 1749 500 Output Total 2075 800 Balance -326 -300 PT 16.9 SEC (12.0-15.0) H 09/13/17 05:10 INR 1.36 (0.83-1.16) H 09/13/17 05:10 - C-Spine Clearance Cervical Spine Cleared: Yes Provider who Cleared Cervical Spine: Annabella Physical Exam - Physical Exam General Appearance: WD/WN, moderate distress EENT: normal ENT inspection Neck: non-tender Respiratory: chest non-tender, lungs clear, decreased breath sounds Cardiac/Chest: regular rate, rhythm Abdomen: non-tender, soft Male Genitalia: deferred Rectal: deferred Skin: warm/dry Extremities: other (tender with bruising right ant tibial region) Neuro/Psych: no motor/sensory deficits, alert, normal mood/affect, oriented x 3 Time Spent w/Patient (minutes): 20
[2017-09-13] MEDS: LACTULOSE 20 GM/30 ML UDCUP PO SCH ×2 (08:56→21:41)
[2017-09-13] MEDS: RIFAXIMIN 550 MG TAB PO SCH ×2 (08:56→21:40)
[2017-09-13] MEDS: TRANEXAMIC ACID 650 MG TAB PO SCH (08:56)
[2017-09-13] MEDS: LIDOCAINE 4%/MENTHOL 1% PATCH TD SCH (08:57)
[2017-09-13] MEDS: BACITRACIN/POLYMYXIN B SULFATE 28.3 GM TUBE TP SCH ×2 (08:57→16:29)
[2017-09-13] MEDS ORDERED: TEARS/DEXTRAN 70/HYPROMELLOSE 15 ML OPHT.BTL EACHEYE PRN (11:09)
[2017-09-13] MEDS: HYDROmorphONE/DILAUDID 1 MG/ML INJ IVP PRN (11:52)
[2017-09-13] MEDS: PHYTONADIONE 2.5 MG/2.5 ML ORAL UDL PO SCH (13:34)
--- NOTE | 2017-09-13 13:42 | PDINTPN ---
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 Most of his pain, at least when he is in bed, is related to his ribs. Stable. Small splenic laceration, buttock/back hematoma Pelvic fractures. Orthopedic consultation appreciated. Anemia: Chronic anemia, plus acute blood loss. Hematocrit has dropped, 21 today, but stable. There is no evidence of obvious bleeding however oozing from his various fractures, soft tissue hematomas and splenic laceration likely playing a role. Appears to be stabilizing. Given blood and platelets 09/11. Pancytopenia/Thrombocytopenia: Platelets low on admission at 51. 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 On TXA Metabolic: No issues identified. Cirrhosis: On rifaximin and lactulose, propranolol. INR slightly high. On vitamin K. Plan: Continue care and pain management. Increase mobilization as tolerated. Continue his routine medications for cirrhosis. Follow laboratory, CBC, H&H - more blood and platelets if needed, none indicated at this time. Follow x-ray tomorrow. Can transfer to a medical-surgical bed at this point. 25 min of critical care time spent directly with the patient. Discussed with the patient and his , surgery, nursing, and the ICU multi disciplinary team. Subjective: Up in a recliner chair. Walked earlier with significant pelvic discomfort. Rib pain and back pain still present. Objective: Vital Signs Temp Pulse Resp BP Pulse Ox 36.9 C 92 20 106/86 H 99 09/13/17 12:00 09/13/17 13:30 09/13/17 12:00 09/13/17 13:30 09/13/17 13:30 Laboratory Results 09/13/17 05:10 09/13/17 05:10 09/12/17 09/13/17 09/14/17 05:59 05:59 05:59 Intake Total 1749 500 Output Total 2075 800 Balance -326 -300 PT 16.9 SEC (12.0-15.0) H 09/13/17 05:10 INR 1.36 (0.83-1.16) H 09/13/17 05:10 Laboratory Tests 09/13/17 09/13/17 05:10 05:10 PT 16.9 H INR 1.36 H Calcium 7.5 L Total Bilirubin 0.6 AST 23 ALT 41 Albumin 2.6 L Physical Exam - Physical Exam General Appearance: alert, no apparent distress EENT: PERRL/EOMI, other (Nasal cannula at 2 L) Neck: normal inspection (No JVD) Respiratory: lungs clear (Anteriorly), decreased breath sounds (At bases, left more so than right), splinting, No pleural rub Cardiac/Chest: regular rate, rhythm, extra beats Abdomen: non-tender, soft, No normal bowel sounds (Decreased, present) Male Genitalia: other (Lew catheter removed) Skin: warm/dry, pallor Extremities: No pedal edema Neuro/Psych: no motor/sensory deficits, No cognition abnormalities ICD10 Worksheet Patient Problems: Problems Problem Status Onset Fall from ladder Acute Multiple fractures of ribs of left side Acute Left pulmonary contusion Acute Splenic hemorrhage Acute Sacral fracture, closed Acute Bilateral pubic rami fractures Acute Hemothorax on left Acute Thrombocytopenia Acute Cirrhosis of liver Acute LAD (lymphadenopathy), mediastinal Acute Splenic laceration Acute
[2017-09-13] MEDS ORDERED: MAGNESIUM HYDROXIDE 30 ML UDCUP PO PRN (17:14)
[2017-09-13] MEDS ORDERED: BISACODYL 10 MG SUPP PR PRN (17:14)
[2017-09-13] MEDS: SENNOSIDES/DOCUSATE SODIUM TAB PO SCH (21:40)
[2017-09-13] MEDS: METHOCARBAMOL 500 MG TAB PO SCH (21:40)
[2017-09-13] MEDS ORDERED: ACETAMINOPHEN 325 MG TAB PO SCH (22:00)
[2017-09-14] MEDS: BACITRACIN/POLYMYXIN B SULFATE 28.3 GM TUBE TP SCH ×4 (03:45→20:36)
[2017-09-14] MEDS: PATCH REMOVAL 1 EA PATCH TD SCH ×2 (03:45→20:35)
[2017-09-14] MEDS: HYDROmorphONE/DILAUDID 2 MG TAB PO PRN ×5 (04:23→20:29)
[2017-09-14] MEDS: HYDROmorphONE/DILAUDID 1 MG/ML INJ IVP PRN ×2 (04:30→05:52)
[2017-09-14] MEDS: ACETAMINOPHEN 325 MG TAB PO SCH ×3 (05:51→20:30)
[2017-09-14] MEDS: METHOCARBAMOL 500 MG TAB PO SCH ×4 (05:51→20:30)
[2017-09-14] MEDS: LACTULOSE 20 GM/30 ML UDCUP PO SCH ×2 (08:10→20:29)
[2017-09-14] MEDS: RIFAXIMIN 550 MG TAB PO SCH ×2 (08:11→20:29)
[2017-09-14] MEDS: SENNOSIDES/DOCUSATE SODIUM TAB PO SCH ×2 (08:11→20:29)
[2017-09-14] MEDS: LIDOCAINE 4%/MENTHOL 1% PATCH TD SCH (08:12)
--- NOTE | 2017-09-14 09:11 | TRAUMAPN ---
Trauma Progress Note - Problem/Surgery Performed (1) Bilateral pubic rami fractures Assessment/Plan: Non operative management toe-touch weight-bearing with walker and assist device per orthopedic surgery. Pain control is an issue. He is now on a muscle relaxant and Dilaudid. Avoid Tylenol 2 to cirrhosis although his liver function seems to be preserved. Qualifiers: Encounter type: initial encounter (2) Cirrhosis of liver Assessment/Plan: Lannec's cirrhosis with pancytopenia. Avoid liver toxic medications in medications cleared by liver. Discussed options with patient for pain control. Qualifiers: Hepatic cirrhosis type: unspecified hepatic cirrhosis Ascites presence: without ascites Qualified Code(s): K74.60 - Unspecified cirrhosis of liver (3) Fall from ladder Assessment/Plan: Acute trauma with left-sided injuries thorax, flank and pelvis. Hematoma on the back and gluteus stable. Pain with inspiration. Chest x-ray stable. Do for chest x-ray this morning. Main issue is pain control he is weight-bearing toe-touch on affected side with walker. Pelvic x-rays to be repeated when he has been up ambulatory for several days. This will have to be readdressed tomorrow as he has not been up today. If these are unstable orthopedic surgery may recommend alternative management Qualifiers: Encounter type: initial encounter Qualified Code(s): W11.XXXA - Fall on and from ladder, initial encounter (5) Multiple fractures of ribs of left side Assessment/Plan: Pain control still seems to be an option. Ketamine was initially used with hallucinations. This will be avoided as a medication of choice for him. Continue narcotic and muscle relaxant will find out if orthopedic surgery will allow nonsteroidal anti-inflammatory in addition Qualifiers: Encounter type: initial encounter (6) Sacral fracture, closed Assessment/Plan: Pain control. Non weight-bearing fracture component no neurologic deficits Qualifiers: Encounter type: initial encounter Assessment/Plan: 67-year-old gentleman who fell from a ladder did not lose consciousness has multiple left-sided injuries with biggest concerns being pancytopenia and pain control. I believe that he also has hypersplenism and a small splenic laceration without active bleeding was also discovered. At this point with hypersplenism and his cirrhosis active transfusion can be counterproductive as he may have an immune reaction to this and he may just sequester blood products. As long as he has stable hemoglobin I would work on pain control and mobility. Importance of pulmonary toilet outlined with the patient and his nurse. All questions were addressed. Objective: Vital Signs Temp Pulse Resp BP Pulse Ox 36.6 C 72 16 103/68 97 09/14/17 08:06 09/14/17 08:06 09/14/17 08:06 09/14/17 08:06 09/14/17 08:06 Laboratory Results 09/14/17 04:15 09/13/17 05:10 09/13/17 09/14/17 09/15/17 05:59 05:59 05:59 Intake Total 500 200 Output Total 800 850 450 Balance -300 -650 -450 PT 16.9 SEC (12.0-15.0) H 09/13/17 05:10 INR 1.36 (0.83-1.16) H 09/13/17 05:10 - C-Spine Clearance Cervical Spine Cleared: Yes Provider who Cleared Cervical Spine: Annabella
--- NOTE | 2017-09-14 09:21 | ASMTCMCOM ---
CM Note CM Note Notes: Patient was transferred from ICU to yesterday, 09/13. His main issues are pain control and mobility. He is also being treated for pancytopenia, likely r/t his chronic cirrhosis and hypersplenism. Current PT/OT recs are for Inpatient Rehab. Per facility, he currently qualifies, but is not medically ready for d/c. They will reassess Saturday 09/16. Case Management will follow. Date Signed: 09/14/2017 09:20 AM Electronically Signed By:Becky Tenorio RN
[2017-09-14] MEDS: IBUPROFEN 600 MG TAB PO PRN ×2 (11:55→18:29)
[2017-09-14] MEDS: PHYTONADIONE 2.5 MG/2.5 ML ORAL UDL PO SCH (14:39)
[2017-09-15] MEDS: HYDROmorphONE/DILAUDID 2 MG TAB PO PRN ×5 (03:33→22:40)
[2017-09-15] MEDS: IBUPROFEN 600 MG TAB PO PRN ×2 (03:33→17:20)
[2017-09-15] MEDS: ACETAMINOPHEN 325 MG TAB PO SCH ×3 (06:23→21:51)
[2017-09-15] MEDS: METHOCARBAMOL 500 MG TAB PO SCH ×4 (06:23→21:51)
[2017-09-15] MEDS: BACITRACIN/POLYMYXIN B SULFATE 28.3 GM TUBE TP SCH ×3 (09:00→22:24)
[2017-09-15] MEDS: LACTULOSE 20 GM/30 ML UDCUP PO SCH ×2 (09:49→21:58)
[2017-09-15] MEDS: RIFAXIMIN 550 MG TAB PO SCH ×2 (09:49→21:51)
[2017-09-15] MEDS: SENNOSIDES/DOCUSATE SODIUM TAB PO SCH ×2 (09:49→21:50)
[2017-09-15] MEDS: LIDOCAINE 4%/MENTHOL 1% PATCH TD SCH (09:51)
--- NOTE | 2017-09-15 14:17 | TRAUMAPN ---
Trauma Progress Note Assessment/Plan: 67yo M s/p fall from ladder c L 6,7,8,9 rib fx, L pulm contusion, hemoperitoneum , jensen sup pubic rami fx, L inf pubic rami fx, jesnen sacral alar fx Neuro: Neuro intact, pain appears to be well controlled with oral and IV Dilaudid as well as ibuprofen and acetaminophen. Wean IV narcotics as tolerated Pulm: Stable on supplemental nasal cannula. Discussed the importance of pulmonary toilet today. Overall improved CV: Hemodynamically stable Abdomen: Soft, nondistended nontender, non peritoneal. Tolerating a regular diet, bowel regimen and place, has not had a bowel movement yet. Renal: Voiding, urine output appropriate. Heme: Stable Id: Afebrile Ortho: Fractures as above, per orthopedics patient is weight-bearing as tolerated to the right leg, touchdown weight-bearing as tolerated to the left leg. Had repeat pelvic inlet and outlet films today the images of which were personally reviewed which show that the pelvic fractures are stable. Dispo: Working on pain control, which is adequate. Wean IV narcotics as needed. Inpatient rehab in the next 24-48 hours. Subjective: feels better today, pain controlled. Objective: Vital Signs Temp Pulse Resp BP Pulse Ox 36.7 C 59 L 16 114/65 98 09/15/17 11:37 09/15/17 11:37 09/15/17 11:37 09/15/17 11:37 09/15/17 11:37 Laboratory Results 09/15/17 04:20 09/13/17 05:10 09/14/17 09/15/17 09/16/17 05:59 05:59 05:59 Intake Total 200 150 Output Total 850 1225 Balance -650 -1075 PT 16.9 SEC (12.0-15.0) H 09/13/17 05:10 INR 1.36 (0.83-1.16) H 09/13/17 05:10 - C-Spine Clearance Cervical Spine Cleared: Yes Provider who Cleared Cervical Spine: Annabella
--- NOTE | 2017-09-15 17:39 | SOAPPROG ---
SOAP Progress Note Assessment/Plan: Assessment: 67y M s/p fall from height p/w B sacral and pubic rami fractures Plan: - Fractures stable after continued mobilization - continue with current weightbearing restrictions - Followup in office for repeat films in 2-3 weeks (provided pt with information ) - Continue monitoring ecchymosis for improvement 09/15/17 17:35 Subjective: Patient getting around with walker, favoring Left leg well. Pain control improving. Objective: Vital Signs Temp Pulse Resp BP Pulse Ox 36.8 C 65 18 128/83 H 98 09/15/17 16:00 09/15/17 16:00 09/15/17 16:00 09/15/17 16:00 09/15/17 16:00 Laboratory Results 09/15/17 04:20 09/13/17 05:10 09/14/17 09/15/17 09/16/17 05:59 05:59 05:59 Intake Total 200 150 Output Total 850 1225 Balance -650 -1075 PT 16.9 SEC (12.0-15.0) H 09/13/17 05:10 INR 1.36 (0.83-1.16) H 09/13/17 05:10 BLE SILT S/S/SP/DP/T, left flank ecchymosis present but no fluctuance nore skin necrosis, 5/5 TA/GS/Inv/Ev, WWP. Mild pain with pelvic roll, but no cari shifting of bone. Patient able to mobilize self ICD10 Worksheet Patient Problems: Problems Problem Status Onset Bilateral pubic rami fractures Acute Cirrhosis of liver Acute Fall from ladder Acute Hemothorax on left Acute LAD (lymphadenopathy), mediastinal Acute Left pulmonary contusion Acute Multiple fractures of ribs of left side Acute Sacral fracture, closed Acute Splenic hemorrhage Acute Splenic laceration Acute Thrombocytopenia Acute
[2017-09-15] MEDS: HYDROmorphONE/DILAUDID 1 MG/ML INJ IVP PRN (21:59)
[2017-09-15] MEDS: PATCH REMOVAL 1 EA PATCH TD SCH (22:51)
[2017-09-16] MEDS: HYDROmorphONE/DILAUDID 2 MG TAB PO PRN ×2 (07:27→13:08)
[2017-09-16] MEDS: ACETAMINOPHEN 325 MG TAB PO SCH (07:28)
[2017-09-16] MEDS: METHOCARBAMOL 500 MG TAB PO SCH ×2 (07:29→13:08)
[2017-09-16 07:41] VITALS: BP 139/78
--- NOTE | 2017-09-16 09:36 | TRAUMAPN ---
Trauma Progress Note Assessment/Plan: 67yo M s/p fall from ladder c L 6,7,8,9 rib fx, L pulmonary contusion, hemoperitoneum, bilateral superior pubic rami fx, L inferior pubic rami fx, bilateral sacral alar fx S: Sitting up in chair. Pain well controlled. Tolerating regular diet. O: Alert VSS Afebrile Chest: R posterior chest dressing cdi. Lung sounds are clear, but diminished. Ecchymosis on right lateral chest Abdomen: soft, nontender, nondistended. : voiding, urine output normal Extremities: weight bearing as tolerated on R leg, toe touch weight bearing as tolerated L leg. Plan: Dispo to rehab today or tomorrow. Discussed with case management, who will work on placement to inpt rehab today. Continue to cough, deep breathe, use IS. Objective: Vital Signs Temp Pulse Resp BP Pulse Ox 36.6 C 83 15 139/78 H 97 09/16/17 07:40 09/16/17 07:40 09/16/17 07:40 09/16/17 07:40 09/16/17 07:40 Laboratory Results 09/15/17 04:20 09/13/17 05:10 09/15/17 09/16/17 09/17/17 05:59 05:59 05:59 Intake Total 150 1450 Output Total 1225 1000 Balance -1075 450 PT 16.9 SEC (12.0-15.0) H 09/13/17 05:10 INR 1.36 (0.83-1.16) H 09/13/17 05:10 - C-Spine Clearance Cervical Spine Cleared: Yes Provider who Cleared Cervical Spine: Annabella
--- NOTE | 2017-09-16 10:16 | PDIAF ---
- Diagnosis Diagnosis: trauma, rib fx's, pulm contusion, B pubic rami and sacral fractures Code Status: Full Code - Medication Management Discharge Medications: Medications to Continue on Transfer Rifaximin [Xifaxan] 550 mg PO BID 10/15/13 [Last Taken 09/08/17] Herbals/Supplements -Info Only 1 ea PO BID 09/09/17 [Last Taken 09/08/17] Lactulose [Enulose] 20 gm PO BID 09/09/17 [Last Taken 09/08/17] Multivitamins [Multivitamin (*)] 1 each PO DAILY 09/09/17 [Last Taken 09/08/17] Propranolol HCl [Inderal 10mg (*)] 10 - 20 mg PO BID PRN 09/09/17 [Last Taken ] oxyCODONE IR [Oxycodone Ir (*)] 5 - 10 mg PO BID PRN 09/09/17 [Last Taken ] Acetaminophen [Tylenol 325mg (*)] 650 mg PO 0600,1400,2200 tab 09/16/17 [Last Taken Unknown] Bacitracin/Polymyxin B Sulfate [Polysporin oint (*)] 1 jayme TP TID oint [Last Taken Unknown] HYDROmorphone HCL [Dilaudid 2 mg (*)] 2 - 4 mg PO Q4 PRN #40 09/16/17 [Last Taken Unknown] Ibuprofen [Motrin (*)] 600 mg PO Q6HRS PRN tab 09/16/17 [Last Taken Unknown] Lidocaine 4%/Menthol 1% [Icy Hot Lidocaine/Menthol 4%/1% Patch (*)] 1 patch TD DAILY #10 patch 09/16/17 [Last Taken Unknown] Methocarbamol [Robaxin 500 mg (*)] 1,000 mg PO QID #30 tab 09/16/17 [Last Taken Unknown] Sennosides/Docusate Sodium [Senokot-S] 1 - 2 tab PO BID tab 09/16/17 [Last Taken Unknown] Tears/Dextran 70/Hypromellose [Natural Balance Tears (*)] 1 drop EACHEYE Q2 PRN opht.btl 09/16/17 [Last Taken Unknown] Discharge Medications: Refer to the Discharge Home Medication list for PRN reason. PICC Care - Routine: N/A - Orders Services needed: Registered Nurse, Physical Therapy, Occupational Therapy Diet Recommendation: no restrictions on diet Diet Texture: Regular Texture Diet Activity/Weight Bearing Restrictions: LLE touchdown weight bearing. RLE weight bearing as tolerated. Additional Instructions: LLE touchdown weight bearing. RLE weight bearing as tolerated. - Follow Up Care Current Providers and Referrals: Parag Hoang MD [Medical Doctor] - follow up in 2 weeks (you will also need follow up with the trauma service. you can make an appointment with Dr. Parag Hoang. ) Patricio Bell MD [Medical Doctor] - (call for an appointment in 2-3 weeks. they will want you to have follow up films. you can ask their office if that should be done before or at your visit. ) Patient,NotPresent [Unknown] - As per Instructions
[2017-09-16] MEDS: BACITRACIN/POLYMYXIN B SULFATE 28.3 GM TUBE TP SCH (10:26)
[2017-09-16] MEDS: LACTULOSE 20 GM/30 ML UDCUP PO SCH (10:27)
[2017-09-16] MEDS: LIDOCAINE 4%/MENTHOL 1% PATCH TD SCH (10:27)
[2017-09-16] MEDS: RIFAXIMIN 550 MG TAB PO SCH (10:28)
[2017-09-16] MEDS: SENNOSIDES/DOCUSATE SODIUM TAB PO SCH (10:28)
[2017-09-16] MEDS: IBUPROFEN 600 MG TAB PO PRN (10:38)
--- NOTE | 2017-09-16 10:57 | SOAPPROG ---
SOAP Progress Note Assessment/Plan: Assessment: 67 male with multi trauma from ladder fall left rib fxs stable left lung contusion stable on cxr mutiple pelvic fxs stable but problematic for ambulation hct slowly dropping with stable vs heent ok chest clear and symmetric cor rr abd soft, nontender afebrile Plan:pt/ rehab eval/ dc ferreira/ trans to sdu 09/12/17 20:51 09/16/17 10:55 SEEN WITH MY PA ZACK LING/ PLEASE REFER TO HER NOTE PROGRESSING WELL/CHEST CLEAR AND NON TENDER/ABDOMEN SOFT AND NONTENDER/ AMBULATING WITH SOME DIFFICULTY/READY FOR REHAB Objective: Vital Signs Temp Pulse Resp BP Pulse Ox 36.6 C 83 15 139/78 H 97 09/16/17 07:40 09/16/17 07:40 09/16/17 07:40 09/16/17 07:40 09/16/17 07:40 Laboratory Results 09/15/17 04:20 09/13/17 05:10 09/15/17 09/16/17 09/17/17 05:59 05:59 05:59 Intake Total 150 1450 Output Total 1225 1000 Balance -1075 450 PT 16.9 SEC (12.0-15.0) H 09/13/17 05:10 INR 1.36 (0.83-1.16) H 09/13/17 05:10 ICD10 Worksheet Patient Problems: Problems Problem Status Onset Bilateral pubic rami fractures Acute Cirrhosis of liver Acute Fall from ladder Acute Hemothorax on left Acute LAD (lymphadenopathy), mediastinal Acute Left pulmonary contusion Acute Multiple fractures of ribs of left side Acute Sacral fracture, closed Acute Splenic hemorrhage Acute Splenic laceration Acute Thrombocytopenia Acute
--- NOTE | 2017-09-16 14:24 | ASMTCMCOM ---
CM Note CM Note Notes: Pt medically stable for d/c to [facility] inpatient rehab. Orders to be obtained via [employer]. HARLAN Lafleur called report. Transport scheduled with Bonnie Meade to bill pt, pt aware of payment requirement. Date Signed: 09/16/2017 02:23 PM Electronically Signed By:DANIEL Alvarado
--- NOTE | 2017-09-16 14:24 | ASDISCHSUM ---
Discharge Information Plan Status:Inpatient Rehab Medically Cleared to Leave: Discharge Date:09/16/2017 01:30 PM CM D/C Disposition:[facility] Acute [facility]T D/C Disposition:[facility] IP Projected Discharge Date:09/16/2017 11:00 AM Transportation at D/C:Wheelchair Van Discharge Delay Reason: Follow-Up Date:09/16/2017 11:00 AM Discharge Slot: Final Diagnosis:Fall: multipple rib fx's, pubic fx's, sacral fx, splenic hemorrhage Placement Information Referral Type:Rehabilitation Hospital Referral ID:[id number] Provider Name:[facility] Inpatient [facility] Address 1:[address] Phone Number: Address 2: Fax Number: [facility]:[place] Selection Factors: State:[place] Patient Contact Information Contact Name:ADDISON Relationship: [address] City:[place] Alternate Phone: State/Zip Code:[place] [address] Email: Financial Information Financial Class:Medicare Primary Plan Desc:MEDICARE INPATIENT Primary Plan Number:[id number] Secondary Plan Desc:[facility] Secondary Plan Number:[id number] Assessment Information [facility] CM Progress Note CM Note CM Note Notes: 67yr old male fell from a ladder, admitted forl: multiple rib fx's, pubic fx's, sacral fx, splenic hemorrhage. He has a hx of smoking, ETOH, constipation, Hep C, cirrhosis. Patient lives with his . Therapies are working with him to determine discharge needs. CM to follow. Date Signed: 09/10/2017 09:29 AM Electronically Signed By:Lidia Castillo LCSW [facility] CM Progress Note CM Note CM Note Notes: Family meeting was held today with patient's , Medardo, Ronaldo, Jodi Perez, cycle manager and myself, case management. Patient's was in the hospital approximately 3 weeks ago and is currently in another episode of her diverticulitis. Medardo reports they have just moved back into their house from a complete remodel and they are in the proces of selling their house in [place]. Medardo is stressed and unable to cope well with patient's accident presently. She requests help with talking to patient about length of recovery he is facing and understanding for her taking time to attend to all the details of living right now without him. She states it will help patient to have a dvd player for movies and Ronaldo will make arrangements for one to be set up in his room. (Facilities can help with this) She hopes this will help patient since he cannot read due to the medicine. We also discussed d/c plan and the fact that patient will most likely need rehab. This is a relief to patient's who doesn't feel she will be equipped to handle all of his needs when he first d/c'es from the hospital. Medardo is concerned he will be a "cripple" and unable to function back at his baseline. Patient's daughter (age 24) has been through several changes as well over the past 6 months and has shingles. Medardo does not want to add to her stress levels so daughter's involvement will be limited. Medardo states her has some cognitive decline from his cirohisis, particularly short term memory function. Will convey this to patient's nurse. CM will follow for d/c needs and coordinate with patient and Medardo. Date Signed: 09/11/2017 02:18 PM Electronically Signed By:Fatoumata Irvin LCSW [facility] Progress Note CM Note CM Note Notes: Patient was transferred from ICU to yesterday, 09/13. His main issues are pain control and mobility. He is also being treated for pancytopenia, likely r/t his chronic cirrhosis and hypersplenism. Current PT/OT recs are for Inpatient Rehab. Per facility, he currently qualifies, but is not medically ready for d/c. They will reassess Saturday 09/16. Case Management will follow. Date Signed: 09/14/2017 09:20 AM Electronically Signed By:Becky Tenorio RN [facility] CM Progress Note CM Note CM Note Notes: Pt medically stable for d/c to [facility] inpatient rehab. Orders to be obtained via [employer]. HARLAN Lafleur called report. Transport scheduled with [employer] to bill pt, pt aware of payment requirement. Date Signed: 09/16/2017 02:23 PM Electronically Signed By:DANIEL Alvarado Intervention Information Intervention Type:*IM-Signed Date of Service:09/16/2017 11:17 AM Patient Type:Inpatient Staff Member:Rita Melvin Hours: Discipline: Severity: Comment:
== END 2017-09-16 13:30 | DRG 964 ==
LOC: EDUNIT# → F2N 19:18 → F3N 09-13 17:33
PROVIDERS: ADMIT Surgery; ATTEND Surgery
PROC: 30233R1 Transfusion of Nonautologous Platelets into Peripheral Vein, Percutaneous Approach (ICD-10-PCS; principal; 2017-09-09)
PROC: 30233N1 Transfusion of Nonautologous Red Blood Cells into Peripheral Vein, Percutaneous Approach (ICD-10-PCS; principal; 2017-09-09)
DX: S22.42XA Multiple fractures of ribs, left side, initial encounter for closed fracture (principal); S32.592A Other specified fracture of left pubis, initial encounter for closed fracture; S32.119A Unspecified Zone I fracture of sacrum, initial encounter for closed fracture; S27.321A Contusion of lung, unilateral, initial encounter; S06.0X0A Concussion without loss of consciousness, initial encounter; S36.030A Superficial (capsular) laceration of spleen, initial encounter; S27.1XXA Traumatic hemothorax, initial encounter; D62 Acute posthemorrhagic anemia; W11.XXXA Fall on and from ladder, initial encounter; Y92.019 Unspecified place in single-family (private) house as the place of occurrence of the external cause; Y93.E9 Activity, other interior property and clothing maintenance; D61.818 Other pancytopenia; D69.6 Thrombocytopenia, unspecified; D53.9 Nutritional anemia, unspecified; G89.29 Other chronic pain; K74.60 Unspecified cirrhosis of liver; Z86.19 Personal history of other infectious and parasitic diseases; F17.210 Nicotine dependence, cigarettes, uncomplicated
CPT/HCPCS: 82947-QW; 92507-GN; 92523-GN; 96374; 97110-GP; 97116-GP; 97162-GP; 97166-GO; 97530-GO; 97530-GP; 97535-GO; G0480; G8978-GP-CL; G8979-GP-CI; G8987-GO-CL; G8988-GO-CI; G9165-GN-CJ; G9166-GN-CI; J1170; J1885; J2405; J3010; P9016; P9035; Q9967

== ENCOUNTER 2017-09-16 13:52 | Inpatient (IN) | payer OTHER ==
[2017-09-16] MEDS ORDERED: PROPRANOLOL HCL 10 MG TAB PO PRN (14:28)
[2017-09-16] MEDS ORDERED: oxyCODONE IR 5 MG TAB PO PRN (14:28)
[2017-09-16] MEDS ORDERED: IBUPROFEN 600 MG TAB PO PRN (14:28)
[2017-09-16] MEDS ORDERED: TEARS/DEXTRAN 70/HYPROMELLOSE 15 ML OPHT.BTL EACHEYE PRN (14:28)
[2017-09-16] MEDS ORDERED: HYDROmorphONE/DILAUDID 2 MG TAB PO PRN (14:28)
[2017-09-16] MEDS ORDERED: BISACODYL 10 MG SUPP PR PRN (15:51)
[2017-09-16] MEDS: oxyCODONE IR 5 MG TAB PO PRN (16:01)
[2017-09-16] MEDS: METHOCARBAMOL 500 MG TAB PO SCH ×2 (16:49→20:42)
[2017-09-16] MEDS: BACITRACIN/POLYMYXIN B SULFATE 28.3 GM TUBE TP SCH ×2 (17:00→20:55)
--- NOTE | 2017-09-16 17:14 | GHP ---
[f rep st] HISTORY AND PHYSICAL POST ADMISSION PHYSICIAN EVALUATION AND REHABILITATION TREATMENT PLAN DATE OF ADMISSION: 09/16/2017 DATE OF EVALUATION: September 16, 2017 TIME OF EVALUATION: 1505 REFERRING FACILITY: [facility]. IMPAIRMENT GROUP: 14.2 ETIOLOGIC DIAGNOSIS: Brain plus multiple fracture/amputation. DATE OF ONSET: 09/09/2017. REFERRING PHYSICAIN: Dr. Winchester. CONSULTING PHYSICIANS: He was seen in consultation by Pulmonary and Critical Care, Dr. Rees, orthopedic surgeon, Dr. Bell. REHABLITATION DIAGNOSIS: Multiple trauma and traumatic brain injury. HISTORY OF PRESENT ILLNESS: This patient had a fall approximately 14 feet from a ladder on 09/09/2017. He hit his head but denies loss of consciousness. He landed on his back and suffered left rib fractures to ribs 6, 7, 8 and 9, a left lower lobe pulmonary contusion, bilateral sacral ala fractures, left superior and inferior pubic ramus fractures, right superior pubic ramus fracture , and splenic laceration. Hospital course involved anemia requiring transfusion, thrombocytopenia which was stable, and pelvic fractures which were stable, but he is touchdown weightbearing on the left lower extremity. He had a hypoxia requiring 1-2 L of oxygen. He had pain control with opiates as well as acetaminophen and ibuprofen in the 24 hours through the end of yesterday, the day before hospital discharge, he used IV and p.o. hydromorphone with a total equivalent oxycodone dose of 104 mg, and the following 24 hours through his discharge from the hospital today using the equivalent of 88 mg. He was on oxycodone for chronic back pain prior to his injury, though he reports he had reduced his use from approximately 100 5-mg tablets per month to 40 5-mg tablets per month, and he thinks the oxycodone is more effective than the hydrocodone. On further conversation, it becomes unclear that he knows that he was not receiving oxycodone in the hospital. He had debility, needing assistance with many ADLs and with mobility, though somewhat limited by pain as well. He was found to have deficits to attention and memory. He was medically stable and ready for transfer to inpatient rehabilitation. STUDIES AND LABS IN HOSPITAL: Imaging revealed fractures discussed above. Regarding anemia, he had a tab hemoglobin of 6.9 and hematocrit of 20.8. Then he was transfused and yesterday his hemoglobin was 8.5 and his hematocrit was 24.9. Two days ago his platelet count was 61. His white blood cell count was 2.72, which is low. INR was persistently elevated possibly due to his history of liver disease. On 09/13/2017, his INR was 1.36. Serum chemistry on 09/13/2017, revealed overall normal renal function and electrolytes, though he had an elevated chloride at 112. He developed a low calcium and albumin at 7.5 and 2.6. Liver functions were normal. Urinalysis on 09/09/2017, was consistent with dehydration with an elevated specific gravity of 1.035, and there was protein, ketones and blood also found in the urine. Ethyl alcohol was undetectable in the serum on 09/09/2017. ACTIVE COMORBIDITIES: He has no active tier 1, tier 2 or tier 3 comorbidities. PAST MEDICAL HISTORY: 1. Hepatitis C for which he reports he received treatment at the [facility], and ultimately after several rounds of different medications, was able to clear the virus. 2. Hepatic cirrhosis with hepatic encephalopathy. 3. Anxiety. 4. Chronic back pain allergies. 5. Alcohol abuse/dependence, but sober for 8 years PAST SURGICAL HISTORY: He has no history of surgeries. MEDICATIONS: Prior to admission: 1. Rifaximin 550 mg p.o. twice daily. 2. Lactulose 20 g p.o. twice daily. 3. Multivitamin 1 p.o. daily. 4. Propranolol 10 to 20 mg p.o. twice daily p.r.n. anxiety. 5. Oxycodone 5 to 10 mg p.o. twice daily p.r.n. back pain. ADMISSION MEDICATIONS: 1. Acetaminophen 650 mg p.o. at 1600, 1400 and 2200. 2. Artificial Tears each eye q.2 hours p.r.n. 3. Bacitracin/polymyxin topical three times daily. 4. Ibuprofen 600 mg p.o. q.6 hours p.r.n. 5. Lactulose 20 g p.o. twice daily. 6. Methocarbamol 1000 mg p.o. four times daily. 7. Lidocaine patch. 8. Multivitamin 1 p.o. daily. 9. Oxycodone 5 to 10 mg p.o. q.3 hours p.r.n. 10. Hydromorphone 2 to 4 mg p.o. q.4 hours p.r.n. 11. Propranolol 10 to 20 mg p.o. twice daily p.r.n. anxiety. 12. Rifaximin 550 mg p.o. twice daily. 13. Senna/docusate 1 tab p.o. twice daily. ALLERGIES: There are no known drug allergies. PSYCHOSOCIAL HISTORY: He is . He lives with his in a multistory home. He thinks he can likely live on 1 level, but there are stairs to enter the house. He is a nonsmoker. He has a history of heavy alcohol use, but is no longer drinking. 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 FAMILY HISTORY: Noncontributory. REVIEW OF SYSTEMS: He reports pain approximately 8.5/10 with movement or during his ride over from [facility]. He is fairly comfortable at rest. He denies shortness of breath currently. He has an occasional cough in which he has had some hemoptysis, and when he coughs he has pain. He has constipation. There is no nausea or vomiting. He has no dysuria, difficulty urinating, or urinary frequency. He has pain in his sacral area and in his left thorax. He denies headache, vision changes, difficulty swallowing, numbness, weakness, or tingling of the extremities. Otherwise, a 10-point review of systems is negative. PHYSICAL EXAM: VITAL SIGNS: This morning in the hospital blood pressure was 139/78, heart rate was 83, respiratory rate was 15, oxygen saturation was 97% on 2 L, temperature was 36.6 degrees centigrade. His weight was 67.3 kg for a body mass index of 21.9. GENERAL: This is a well-nourished, well-developed man , appears younger than his chronologic age, lying in bed in a hospital gown cooperative and in no acute distress. HEENT: Extraocular movements are intact. Pupils are equal, round, reactive to light. Mucous membranes are moist. Dentition is in good condition. NECK: Supple. HEART: There is a regular rate and rhythm with no murmurs, rubs, or gallops. There appear to be occasional skipped beats. LUNGS: He has fine crackles in the left lower lobe. Otherwise, lungs are clear to auscultation bilaterally. ABDOMEN: Soft, nontender, nondistended with normoactive bowel sounds and no hepatosplenomegaly. EXTREMITIES: There is no cyanosis, clubbing, or edema. Radial and dorsalis pedis pulses are 2+ bilaterally. There is no calf tenderness. NEUROLOGIC: He is alert and oriented x3. Cranial nerves 2-12 are grossly intact. There is no focal weakness. Sensation is intact to light touch. Deep tendon reflexes are 2+ bilaterally at the biceps, patellar, and Achilles tendons. He is somewhat tangential. He needs assistance to arise to seated from supine, which causes him considerable pain. SKIN: There is an abrasion of the right alvarado. CURRENT LEVEL OF FUNCTION PER THE PRE-ADMISSION SCREEN: Regarding diet, feeding , and swallowing, he was on a regular diet and required set up for eating. Regarding grooming, he required setup. Dressing the upper body was done with minimal assist and lower body with moderate assist. He was continent of bladder and bowel. Bed mobility required moderate assist with voice cuing and increased time. Transfers required minimal assist with voice cuing to maintain weightbearing status. He used a front-wheeled walker. He was independent with seated balance and required minimal to moderate assist for standing balance. Endurance was fair. His gait was limited by pain. He had a mild to moderate communication deficit and mild to moderate deficits to attention and memory. There are no significant changes from the pre-existing screen on today's exam. IMPRESSION: This is a 67-year-old man who suffered a 14 foot fall off a ladder , hit his head and suffered multiple fractures, including the left ribs, bilateral sacral ala and pubic rami fractures, upper and lower on the left and upper on the right. Hospital course included the need for pain control and progressive anemia, partly due to a splenic laceration. He had a blood transfusion. He required considerable doses of opiates for pain control and was able to mobilize to a limited extent. He was otherwise stabilized and appropriate for inpatient rehabilitation. His goal is to complete a rehabilitation stay and then return home with family and supportive services. For a safe discharge he will need to achieve modified independence for ADLs and functional tasks with the least restrictive device for community distances. He will need to be medically stable regarding anemia. He will receive therapy with Physical Therapy, Occupational Therapy, and Speech and Language Pathology for 60 minutes per day for each discipline on 5-7 days of the week. His expected duration of stay is 5-7 days. It is anticipated that upon discharge he will continue to benefit from home health services, including nursing, occupational therapy, and physical therapy. PLAN: 1. Multiple trauma with pelvic fractures and left rib fractures, touchdown weightbearing status on the left lower extremity. PT and OT to optimize mobility and activities of daily living towards the modified independent level for discharge home. 2. Symptoms of TBI, though he denies loss of consciousness, with deficits to memory and attention. Assessment and treatment per Speech and Language Pathology. 3. Pain management. Will initiate morphine sustained release 15 mg at h.s. to improve his chances of sleeping through the night without being awakened by pain. He reports that he has a preference for oxycodone over hydromorphone, though hydromorphone is what he was receiving in the hospital. His total oxycodone dose equivalent yesterday was 88 mg. Will increase oxycodone to 5-15 mg q.3 hours p.r.n. We will continue acetaminophen which is appropriately dosed at less than 2 g per day given his history of liver disease. Ibuprofen will be continued for now, though there is some risk for GI ulceration. If he had a history of esophageal or gastric varices and especially variceal bleeding , ibuprofen would be contraindicated, but he does not report that history. He will have serial assessments of his pain and adjustment of medications as necessary. 4. Hepatic cirrhosis, most likely compensated, status post treatment of hepatitis C and cessation of alcohol abuse. He has some elevated bleeding risk with an elevated INR and thrombocytopenia, but neither one of those lab results have been critical. With history of hepatic encephalopathy, we will continue rifaximin and lactulose. 5. Pulmonary contusion. He will have incentive spirometry and oxygen as necessary. 6. Anemia due to likely bleeding from multiple sites, including pulmonary contusions, splenic laceration and multiple fractures. He required a transfusion yesterday. Will check a CBC tomorrow morning to ensure that his blood counts are stable. 7. Anxiety. Emotionally labile and tearful when discussing his career. He and his are under considerable stress regarding a home model, putting 1 house on the market and moving into the house. He will have counseling per [facility]. Prophylaxis. 8. Pharmacologic anticoagulation has been contraindicated as he had active bleeding and a declining hematocrit and hemoglobin. Once it is ensured that his anemia has stabilized or is improving, depending on his mobility, can consider pharmacologic anticoagulation. We will initiate sequential compression devices on his legs at night. FOLLOWUP: He is recommended to follow up with Dr. Hoang of the trauma service in approximately 2 weeks or the week of 09/30/2017. He is to follow up with orthopedic surgeon, Dr. Patricio Bell in 2-3 weeks, again, the week of 09/30 to . His primary care is at the [facility]. /[id number]/MODL MTDD
--- NOTE | 2017-09-16 17:35 | PDOREHIP ---
Admission [facility] - Admission - 3 Day Assessment Period Admission Date/Day 1: 09/16/17 Day 2: 09/17/17 Day 3: 09/18/17 - Active Diagnoses Comorbidities and Co-existing Conditions at Admission: 06283. None of the Above - Skin Conditions Unhealed Pressure Ulcer (1 or more/Stage 1 or >)-Admission: 0. No
[2017-09-16] MEDS: RIFAXIMIN 550 MG TAB PO SCH (20:40)
[2017-09-16] MEDS: ACETAMINOPHEN 325 MG TAB PO SCH (20:41)
[2017-09-16] MEDS: SENNOSIDES/DOCUSATE SODIUM TAB PO SCH (20:41)
[2017-09-16] MEDS: LACTULOSE 20 GM/30 ML UDCUP PO SCH (20:43)
[2017-09-16] MEDS: PATCH REMOVAL 1 EA PATCH TD SCH (20:57)
[2017-09-16] MEDS ORDERED: morphINE SR 15 MG TAB PO SCH (21:00)
[2017-09-16] MEDS ORDERED: Herbals/Supplements -Info Only PO SCH (21:00)
[2017-09-16] MEDS ORDERED: NON-FORMULARY NEW DRUG (Lactulose [Enulose] 20 GM) PO SCH (21:00)
[2017-09-17] MEDS: ACETAMINOPHEN 325 MG TAB PO SCH ×3 (05:36→21:20)
[2017-09-17] MEDS: METHOCARBAMOL 500 MG TAB PO SCH ×4 (05:36→21:20)
[2017-09-17] MEDS: oxyCODONE IR 5 MG TAB PO PRN ×4 (05:52→23:32)
[2017-09-17] MEDS: BACITRACIN/POLYMYXIN B SULFATE 28.3 GM TUBE TP SCH ×3 (08:02→21:27)
[2017-09-17] MEDS: LIDOCAINE 4%/MENTHOL 1% PATCH TD SCH (08:03)
[2017-09-17] MEDS: LACTULOSE 20 GM/30 ML UDCUP PO SCH ×2 (08:03→21:19)
[2017-09-17] MEDS: MULTIVITAMINS 1 EACH TAB PO SCH (08:09)
[2017-09-17] MEDS: RIFAXIMIN 550 MG TAB PO SCH ×2 (08:09→21:19)
[2017-09-17] MEDS: SENNOSIDES/DOCUSATE SODIUM TAB PO SCH ×2 (08:09→21:20)
[2017-09-17 08:10] LABS: PLATELET COUNT 108 10^3/uL (150-400)
--- NOTE | 2017-09-17 12:33 | SOAPPROG ---
SOAP Progress Note Assessment/Plan: Assessment: Multiple trauma with pelvic fractures and left rib fractures, touchdown weightbearing status on the left lower extremity. * PT and OT to optimize mobility and activities of daily living towards the modified independent level for discharge home. Symptoms of TBI, though he denies loss of consciousness, with deficits to memory and attention. Assessment and treatment per Speech and Language Pathology. Pain management. * Initiated morphine sustained release 15 mg at h.s. 09/16/2017. Inadequate pain control during the day. Increase morphine sustained release to 15 mg twice daily starting 09/17/2017. * Continue oxycodone 5-15 mg q.3 hours p.r.n. * Continue acetaminophen at 650 mg three times daily, scheduled, to remain below 2 g per day threshold in a patient with liver disease. * Continue ibuprofen p.r.n. with some caution due to bleeding risk. If he had a history of esophageal or gastric varices and especially variceal bleeding, ibuprofen would be contraindicated, but he does not report that history. He will have serial assessments of his pain and adjustment of medications as necessary. Constipation. * Continue lactulose. * Increase senna/docusate from 1 tablet twice daily to 2 tablets twice daily starting 09/17/2017 Hepatic cirrhosis, most likely compensated, status post treatment of hepatitis C and cessation of alcohol abuse. With history of hepatic encephalopathy, we will continue rifaximin and lactulose. Coagulopathy, possibly due to liver disease, versus consumption coagulopathy due to multiple injuries. Recheck PT, PTT and INR in 2 days. Pulmonary contusion. He will have incentive spirometry and oxygen as necessary. Anemia due to likely bleeding from multiple sites, including pulmonary contusions, splenic laceration and multiple fractures. He required a transfusion yesterday. * Improving on CBC 09/17/2017. Recheck in 2 days. Thrombocytopenia, resolved on CBC 6 08/2017. Prophylaxis. Pharmacologic anticoagulation has been contraindicated as he had active bleeding and a declining hematocrit and hemoglobin. Once it is ensured that his anemia has stabilized or is improving, depending on his mobility, can consider pharmacologic anticoagulation. We will initiate sequential compression devices on his legs at night. FOLLOWUP: He is recommended to follow up with Dr. Hoang of the trauma service in approximately 2 weeks or the week of 09/30/2017. He is to follow up with orthopedic surgeon, Dr. Patricio Bell in 2-3 weeks, again, the week of 09/30 to . [facility] care [facility] at [facility]. 09/17/17 12:33 Subjective: Had adequate pain control overnight but reports that he thinks he over did it this morning with physical therapy and had considerable pain. PT reports he was able to ambulate about 15 ft and that he was screaming. Has constipation. Slept well but awoke during the night and did not know where he was. He eventually was able to reorient himself. Objective: Vital Signs Temp Pulse Resp BP Pulse Ox 36.7 C 90 20 130/70 H 97 09/17/17 06:22 09/17/17 06:22 09/17/17 06:22 09/17/17 06:22 09/17/17 06:22 Laboratory Results 09/17/17 06:00 09/17/17 06:00 09/16/17 09/17/17 09/18/17 05:59 05:59 05:59 Intake Total 690 360 Output Total 200 400 Balance 490 -40 Physical Exam - Physical Exam General Appearance: WD/WN, alert, no apparent distress Respiratory: normal breath sounds, No crackles, No rhonchi, No wheezing Cardiac/Chest: regular rate, rhythm, No edema, No diastolic murmur, No systolic murmur Skin: normal color, warm/dry Neuro/Psych: no motor/sensory deficits, alert, normal mood/affect, oriented x 3 ICD10 Worksheet Patient Problems: Problems Problem Status Onset Bilateral pubic rami fractures Acute Cirrhosis of liver Acute Fall from ladder Acute Hemothorax on left Acute LAD (lymphadenopathy), mediastinal Acute Left pulmonary contusion Acute Multiple fractures of ribs of left side Acute Sacral fracture, closed Acute Splenic hemorrhage Acute Splenic laceration Acute Thrombocytopenia Acute
[2017-09-17] MEDS: morphINE SR 15 MG TAB PO SCH ×2 (13:12→21:20)
[2017-09-17] MEDS: PATCH REMOVAL 1 EA PATCH TD SCH (21:36)
[2017-09-18] MEDS: BACITRACIN/POLYMYXIN B SULFATE 28.3 GM TUBE TP SCH ×3 (05:11→20:39)
[2017-09-18] MEDS: ACETAMINOPHEN 325 MG TAB PO SCH ×3 (05:33→20:39)
[2017-09-18] MEDS: METHOCARBAMOL 500 MG TAB PO SCH ×4 (05:34→19:35)
[2017-09-18] MEDS: LIDOCAINE 4%/MENTHOL 1% PATCH TD SCH (08:01)
[2017-09-18] MEDS: LACTULOSE 20 GM/30 ML UDCUP PO SCH ×2 (08:01→19:35)
[2017-09-18] MEDS: MULTIVITAMINS 1 EACH TAB PO SCH (08:02)
[2017-09-18] MEDS: SENNOSIDES/DOCUSATE SODIUM TAB PO SCH ×2 (08:02→19:34)
[2017-09-18] MEDS: RIFAXIMIN 550 MG TAB PO SCH ×2 (08:02→19:35)
[2017-09-18] MEDS: oxyCODONE IR 5 MG TAB PO PRN ×4 (08:03→19:40)
[2017-09-18 08:59] LABS: INR 1.22 (0.83-1.16); PROTIME(PATIENT) 15.6 SEC (12.0-15.0)
[2017-09-18] MEDS: morphINE SR 15 MG TAB PO SCH ×2 (09:34→19:35)
--- NOTE | 2017-09-18 13:05 | SOAPPROG ---
SOAP Progress Note Assessment/Plan: Assessment: Multiple trauma with pelvic fractures and left rib fractures, touchdown weightbearing status on the left lower extremity. * PT and OT to optimize mobility and activities of daily living towards the modified independent level for discharge home. Symptoms of TBI, though he denies loss of consciousness, with deficits to memory and attention. Assessment and treatment per Speech and Language Pathology. Pain management. * Initiated morphine sustained release 15 mg at h.s. 09/16/2017. Inadequate pain control during the day. Increase morphine sustained release to 15 mg twice daily starting 09/17/2017. * Continue oxycodone 5-15 mg q.3 hours p.r.n. Offer prior to getting out of bed in the morning. * Continue acetaminophen at 650 mg three times daily, scheduled, to remain below 2 g per day threshold in a patient with liver disease. * Continue ibuprofen p.r.n. with some caution due to bleeding risk. If he had a history of esophageal or gastric varices and especially variceal bleeding, ibuprofen would be contraindicated, but he does not report that history. He will have serial assessments of his pain and adjustment of medications as necessary. Constipation. * Continue lactulose. * Increase senna/docusate from 1 tablet twice daily to 2 tablets twice daily starting 09/17/2017. * Bowels moved today, 09/18/2017, after physical suppository. Hepatic cirrhosis, most likely compensated, status post treatment of hepatitis C and cessation of alcohol abuse. With history of hepatic encephalopathy, we will continue rifaximin and lactulose. Coagulopathy, possibly due to liver disease, versus consumption coagulopathy due to multiple injuries. PT, PTT improving on labs 09/18/2017. Pulmonary contusion. He will have incentive spirometry and oxygen as necessary. Anemia due to likely bleeding from multiple sites, including pulmonary contusions, splenic laceration and multiple fractures. He required a transfusion yesterday. * Improving on CBC 09/17/2017. Recheck in 2 days. Thrombocytopenia improving on CBC 09/17/2017 and 09/18/2017. Prophylaxis. With improving coagulation studies and platelet count, and stable anemia, but continued greatly reduced mobility, initiate enoxaparin 40 mg subcutaneous q.day starting 09/18/2017. Continue sequential compression devices on his legs at night. FOLLOWUP: He is recommended to follow up with Dr. Hoang of the trauma service in approximately 2 weeks or the week of 09/30/2017. He is to follow up with orthopedic surgeon, Dr. Patricio Bell in 2-3 weeks, again, the week of 09/30 to . His primary care is at the [facility]. 09/18/17 13:03 Subjective: Reports that he had a rough morning with pain with morning ADLs. He said he did not get his pain medications soon enough. Finally moved his bowels today, initially after physical suppository and then several times subsequently. Objective: Vital Signs Temp Pulse Resp BP Pulse Ox 36.9 C 75 14 120/72 93 09/18/17 06:20 09/18/17 06:20 09/18/17 06:20 09/18/17 06:20 09/18/17 06:20 Laboratory Results 09/18/17 06:00 09/17/17 06:00 09/17/17 09/18/17 09/19/17 05:59 05:59 05:59 Intake Total 690 1116 340 Output Total 200 2000 Balance 490 -884 340 PT 15.6 SEC (12.0-15.0) H 09/18/17 06:00 INR 1.22 (0.83-1.16) H 09/18/17 06:00 Physical Exam - Physical Exam General Appearance: WD/WN, alert, no apparent distress Respiratory: normal breath sounds, No crackles, No rhonchi, No wheezing Cardiac/Chest: regular rate, rhythm, No edema, No diastolic murmur, No systolic murmur Skin: normal color, warm/dry, other (Abrasion right alvarado with no erythema or purulence.) Extremities: No calf tenderness, No swelling Neuro/Psych: no motor/sensory deficits, alert, normal mood/affect, oriented x 3 ICD10 Worksheet Patient Problems: Problems Problem Status Onset Bilateral pubic rami fractures Acute Cirrhosis of liver Acute Fall from ladder Acute Hemothorax on left Acute LAD (lymphadenopathy), mediastinal Acute Left pulmonary contusion Acute Multiple fractures of ribs of left side Acute Sacral fracture, closed Acute Splenic hemorrhage Acute Splenic laceration Acute Thrombocytopenia Acute
[2017-09-18] MEDS: ENOXAPARIN 40 MG/0.4 ML SYR SC SCH (13:47)
[2017-09-18] MEDS: PATCH REMOVAL 1 EA PATCH TD SCH (19:35)
[2017-09-19] MEDS: ACETAMINOPHEN 325 MG TAB PO SCH ×3 (05:48→20:02)
[2017-09-19] MEDS: METHOCARBAMOL 500 MG TAB PO SCH ×3 (05:48→17:19)
[2017-09-19] MEDS: oxyCODONE IR 5 MG TAB PO PRN ×5 (05:49→20:17)
[2017-09-19] MEDS: ENOXAPARIN 40 MG/0.4 ML SYR SC SCH (07:50)
[2017-09-19] MEDS: LIDOCAINE 4%/MENTHOL 1% PATCH TD SCH (07:51)
[2017-09-19] MEDS: morphINE SR 15 MG TAB PO SCH ×2 (07:51→20:01)
[2017-09-19] MEDS: SENNOSIDES/DOCUSATE SODIUM TAB PO SCH ×2 (07:51→20:01)
[2017-09-19] MEDS: LACTULOSE 20 GM/30 ML UDCUP PO SCH ×2 (07:52→20:01)
[2017-09-19] MEDS: RIFAXIMIN 550 MG TAB PO SCH ×2 (07:52→20:01)
[2017-09-19] MEDS: MULTIVITAMINS 1 EACH TAB PO SCH (07:52)
[2017-09-19] MEDS: BACITRACIN/POLYMYXIN B SULFATE 28.3 GM TUBE TP SCH ×3 (07:53→20:02)
--- NOTE | 2017-09-19 17:04 | SOAPPROG ---
SOAP Progress Note Assessment/Plan: Assessment: Multiple trauma with pelvic fractures and left rib fractures, touchdown weightbearing status on the left lower extremity. * PT and OT to optimize mobility and activities of daily living towards the modified independent level for discharge home. Symptoms of TBI, though he denies loss of consciousness, with deficits to memory and attention. Assessment and treatment per Speech and Language Pathology. Pain management. * Initiated morphine sustained release 15 mg at h.s. 09/16/2017. Inadequate pain control during the day. Increase morphine sustained release to 15 mg twice daily starting 09/17/2017. * Continue oxycodone 5-15 mg q.3 hours p.r.n. Offer prior to getting out of bed in the morning. * Continue acetaminophen at 650 mg three times daily, scheduled, to remain below 2 g per day threshold in a patient with liver disease. * Change ibuprofen to 600 mg p.o. 3 times a day scheduled starting 09/19/2017. * Change methocarbamol to p.r.n. He does not complain of muscle spasms. Constipation. * Continue lactulose. * Increase senna/docusate from 1 tablet twice daily to 2 tablets twice daily starting 09/17/2017. Hepatic cirrhosis, most likely compensated, status post treatment of hepatitis C and cessation of alcohol abuse. With history of hepatic encephalopathy, we will continue rifaximin and lactulose. Coagulopathy, possibly due to liver disease, versus consumption coagulopathy due to multiple injuries. PT, PTT improving on labs 09/18/2017. Pulmonary contusion. He will have incentive spirometry and oxygen as necessary. Anemia due to likely bleeding from multiple sites, including pulmonary contusions, splenic laceration and multiple fractures. He required a transfusion yesterday. * Improving on CBC 09/17/2017. Stable on labs 09/18/2017. Thrombocytopenia improving on CBC 09/17/2017 and 09/18/2017. Prophylaxis. With improving coagulation studies and platelet count, and stable anemia, but continued greatly reduced mobility, initiate enoxaparin 40 mg subcutaneous q.day starting 09/18/2017. Continue sequential compression devices on his legs at night. Initiate pantoprazole 40 mg p.o. Q.day starting 09/20/2017 due to concurrent use of enoxaparin and ibuprofen. FOLLOWUP: He is recommended to follow up with Dr. Hoang of the trauma service in approximately 2 weeks or the week of 09/30/2017. He is to follow up with orthopedic surgeon, Dr. Patricio Bell in 2-3 weeks, again, the week of 09/30 to . His primary care is at the [facility]. 09/19/17 17:01 Subjective: Complains of pain, most severe from left rib fractures. Is most notable with bed mobility and transferring, less so with ambulation using the front wheeled walker. He has not noticed any muscle spasms. He is otherwise without acute complaints. Objective: Vital Signs Temp Pulse Resp BP Pulse Ox 37.0 C 90 16 130/75 H 94 09/19/17 06:21 09/19/17 06:21 09/19/17 06:21 09/19/17 06:21 09/19/17 06:21 Laboratory Results 09/18/17 06:00 09/17/17 06:00 09/18/17 09/19/17 09/20/17 05:59 05:59 05:59 Intake Total 1116 460 360 Output Total 2000 1250 600 Balance -884 -790 -240 PT 15.6 SEC (12.0-15.0) H 09/18/17 06:00 INR 1.22 (0.83-1.16) H 09/18/17 06:00 Physical Exam - Physical Exam General Appearance: WD/WN, alert, no apparent distress Respiratory: normal breath sounds, No crackles, No rhonchi, No wheezing Cardiac/Chest: regular rate, rhythm, No diastolic murmur, No systolic murmur Skin: normal color, warm/dry Neuro/Psych: no motor/sensory deficits, alert, normal mood/affect, oriented x 3 ICD10 Worksheet Patient Problems: Problems Problem Status Onset Bilateral pubic rami fractures Acute Cirrhosis of liver Acute Fall from ladder Acute Hemothorax on left Acute LAD (lymphadenopathy), mediastinal Acute Left pulmonary contusion Acute Multiple fractures of ribs of left side Acute Sacral fracture, closed Acute Splenic hemorrhage Acute Splenic laceration Acute Thrombocytopenia Acute
[2017-09-19] MEDS: METHOCARBAMOL 500 MG TAB PO PRN (20:01)
[2017-09-19] MEDS: PATCH REMOVAL 1 EA PATCH TD SCH (20:02)
[2017-09-19] MEDS: IBUPROFEN 600 MG TAB PO SCH (20:17)
[2017-09-20] MEDS: METHOCARBAMOL 500 MG TAB PO PRN (05:53)
[2017-09-20] MEDS: oxyCODONE IR 5 MG TAB PO PRN ×5 (05:53→21:24)
[2017-09-20] MEDS: ACETAMINOPHEN 325 MG TAB PO SCH ×3 (05:53→21:28)
[2017-09-20] MEDS: LACTULOSE 20 GM/30 ML UDCUP PO SCH ×2 (08:11→20:30)
[2017-09-20] MEDS: PANTOPRAZOLE SODIUM 40 MG TAB PO SCH (08:11)
[2017-09-20] MEDS: MULTIVITAMINS 1 EACH TAB PO SCH (08:11)
[2017-09-20] MEDS: SENNOSIDES/DOCUSATE SODIUM TAB PO SCH ×2 (08:11→20:30)
[2017-09-20] MEDS: morphINE SR 15 MG TAB PO SCH ×2 (08:11→20:30)
[2017-09-20] MEDS: RIFAXIMIN 550 MG TAB PO SCH ×2 (08:11→20:30)
[2017-09-20] MEDS: IBUPROFEN 600 MG TAB PO SCH ×3 (08:12→21:28)
[2017-09-20] MEDS: ENOXAPARIN 40 MG/0.4 ML SYR SC SCH (08:12)
[2017-09-20] MEDS: LIDOCAINE 4%/MENTHOL 1% PATCH TD SCH (08:14)
--- NOTE | 2017-09-20 12:35 | SOAPPROG ---
SOAP Progress Note Assessment/Plan: Assessment: Multiple trauma with pelvic fractures and left rib fractures, touchdown weightbearing status on the left lower extremity. * Initial functional independence measure 77 on 09/20/2017. Standby assist for bed mobility. Transferring standby assist with front wheeled walker. Difficulty to comply with weight-bearing part due to left thoracic pain from rib fractures. Did a car transfer with standby assist. Grooming and hygiene with setup while seated. Upper body dressing requires minimum minimal assist to standby assist, lower body dressing requires setup to standby assist. Bathing seated with minimal assist and shower transfer with minimal assist. * Not yet working on stairs. Not working on longer ambulation due to difficulties maintaining toe-touch weight-bearing. * Continue PT and OT to optimize mobility and activities of daily living towards the modified independent level for discharge home. Symptoms of TBI, though he denies loss of consciousness, with deficits to memory and attention. Assessment and treatment per Speech and Language Pathology. Pain management. * Improved. Continue morphine SR 15 mg twice daily, oxycodone 5-15 mg q.3 hours p.r.n., acetaminophen 650 mg three times daily scheduled, ibuprofen 600 mg three times daily scheduled. * Change methocarbamol to p.r.n.. Edema, left lower extremity. DVT ruled out with ultrasound bilateral lower extremities 09/20/2017. Ibuprofen may contribute. Continue to monitor. * Check CMP to ensure no renal or hepatic decompensation. Constipation. * Continue lactulose. * Increase senna/docusate from 1 tablet twice daily to 2 tablets twice daily starting 09/17/2017. Hepatic cirrhosis, most likely compensated, status post treatment of hepatitis C and cessation of alcohol abuse. With history of hepatic encephalopathy, we will continue rifaximin and lactulose. Coagulopathy, possibly due to liver disease, versus consumption coagulopathy due to multiple injuries. PT, PTT improving on labs 09/18/2017. Pulmonary contusion. He will have incentive spirometry and oxygen as necessary. Anemia due to likely bleeding from multiple sites, including pulmonary contusions, splenic laceration and multiple fractures. He required a transfusion yesterday. * Improving on CBC 09/17/2017. Stable on labs 09/18/2017. Thrombocytopenia improving on CBC 09/17/2017 and 09/18/2017. Prophylaxis. With improving coagulation studies and platelet count, and stable anemia, but continued greatly reduced mobility, initiate enoxaparin 40 mg subcutaneous q.day starting 09/18/2017. Continue sequential compression devices on his legs at night. Initiate pantoprazole 40 mg p.o. Q.day starting 09/20/2017 due to concurrent use of enoxaparin and ibuprofen. FOLLOWUP: He is recommended to follow up with Dr. Hoang of the trauma service in approximately 2 weeks or the week of 09/30/2017. He is to follow up with orthopedic surgeon, Dr. Patricio Bell in 2-3 weeks, again, the week of 09/30 to . His primary care is at the [facility]. DISPOSITION: Attended staffing, 15 min. Discussed with case management, nursing, PT, OT, [employer]. Needs to be able to climb multiple steps to be able to return home. Set tentative discharge date of 10/01/2017. 09/20/17 12:40 Subjective: Nurse noted leg swelling this morning, greater on the left than the right lower leg. He was sent for ultrasound which ruled out DVTs. He reports pain control is improved. No cough or dyspnea. No fevers or chills. Sleeping well. Objective: Vital Signs Temp Pulse Resp BP Pulse Ox 36.9 C 70 18 114/72 92 09/20/17 08:00 09/20/17 08:00 09/20/17 08:00 09/20/17 08:00 09/20/17 08:00 Laboratory Results 09/18/17 06:00 09/17/17 06:00 09/19/17 09/20/17 09/21/17 05:59 05:59 05:59 Intake Total 460 1260 Output Total 1250 1400 Balance -790 -140 PT 15.6 SEC (12.0-15.0) H 09/18/17 06:00 INR 1.22 (0.83-1.16) H 09/18/17 06:00 - Time Spent With Patient Time Spent With Patient: Greater than 35 min floor time today, including more than 50% of time in coordination of care during staffing meeting, and counseling patient. Physical Exam - Physical Exam General Appearance: WD/WN, alert, no apparent distress Respiratory: normal breath sounds, No crackles, No rhonchi, No wheezing Cardiac/Chest: regular rate, rhythm, edema (Trace to 1+ edema left lower leg.), No diastolic murmur, No systolic murmur Abdomen: normal bowel sounds, non-tender, soft, No organomegaly, No distended Skin: normal color, warm/dry, other (Abrasion over right scapula epithelialized. ) Neuro/Psych: no motor/sensory deficits, alert, normal mood/affect, oriented x 3 ICD10 Worksheet Patient Problems: Problems Problem Status Onset Bilateral pubic rami fractures Acute Cirrhosis of liver Acute Fall from ladder Acute Hemothorax on left Acute LAD (lymphadenopathy), mediastinal Acute Left pulmonary contusion Acute Multiple fractures of ribs of left side Acute Sacral fracture, closed Acute Splenic hemorrhage Acute Splenic laceration Acute Thrombocytopenia Acute
[2017-09-20] MEDS: BACITRACIN/POLYMYXIN B SULFATE 28.3 GM TUBE TP SCH (12:38)
[2017-09-20] MEDS: PATCH REMOVAL 1 EA PATCH TD SCH (21:31)
[2017-09-21] MEDS: ACETAMINOPHEN 325 MG TAB PO SCH ×3 (05:44→22:01)
[2017-09-21] MEDS: oxyCODONE IR 5 MG TAB PO PRN ×3 (07:25→15:00)
[2017-09-21] MEDS: SENNOSIDES/DOCUSATE SODIUM TAB PO SCH ×2 (08:34→20:19)
[2017-09-21] MEDS: IBUPROFEN 600 MG TAB PO SCH ×3 (08:34→22:01)
[2017-09-21] MEDS: MULTIVITAMINS 1 EACH TAB PO SCH (08:34)
[2017-09-21] MEDS: morphINE SR 15 MG TAB PO SCH ×2 (08:34→20:19)
[2017-09-21] MEDS: RIFAXIMIN 550 MG TAB PO SCH ×2 (08:34→20:19)
[2017-09-21] MEDS: ENOXAPARIN 40 MG/0.4 ML SYR SC SCH (08:35)
[2017-09-21] MEDS: LIDOCAINE 4%/MENTHOL 1% PATCH TD SCH (08:35)
[2017-09-21] MEDS: PANTOPRAZOLE SODIUM 40 MG TAB PO SCH (08:35)
[2017-09-21] MEDS: LACTULOSE 20 GM/30 ML UDCUP PO SCH ×2 (08:35→20:19)
--- NOTE | 2017-09-21 13:09 | HOSPPROG ---
Hospitalist Progress Note Assessment/Plan: Assessment: 67 yo M p/w traumatic fall resulting in rib and pelvic fractures Plan: # Multiple trauma with pelvic fractures and left rib fractures, touchdown weightbearing status on the left lower extremity. -pain well controlled, oxy IR PRN + PRN tylenol/NSAID + PRN robaxin + MS 15 bid -f/u Dr. Hoang in 1 week, Dr. 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 No DVT on US, no further w/u indicated -suspect iatrogenic w/ recent hospitalization and underlying cirrhosis -patient is naturesing well, no indication for diuretic at this time -counseled patient that he may experience more rapid fluid mobilization by elevating legs more when he is in bed, using TEDs continuously, and continuing SCDs when in bed -liver panel unremarkable, Cr wnl # Constipation. Alleviated w/ stool softener, continue -full bowel regimen ordered PRN # Hepatic cirrhosis, most likely compensated, status post treatment of hepatitis C and cessation of alcohol abuse. With history of hepatic encephalopathy, we will continue rifaximin and lactulose. -diuretic may be useful to maintain neutral fluid balance in the future, but, w / his mobility limitations s/p fall, will hold on starting a diuretic that would necessitate more frequent trips to bathroom -recommend outpt GI or PCP f/u 1 week from discharge # Coagulopathy, possibly due to liver disease, versus consumption coagulopathy due to multiple injuries. PT, PTT improving on labs 09/18/2017. # Pulmonary contusion. He will have incentive spirometry and oxygen as necessary. # Anemia due to likely bleeding from multiple sites, including pulmonary contusions, splenic laceration and multiple fractures. He required a transfusion -stable 09/18 # Thrombocytopenia improving on CBC 09/17/2017 and 09/18/2017. Prophylaxis. High risk, lovenox 40 Diet. Regular Code. Full Dispo. ADD 10/01, requires ongoing therapy Subjective: patient reports ongoing edema, no pain in legs, moved bowels this AM Objective: Vital Signs Temp Pulse Resp BP Pulse Ox 36.6 C 64 16 132/80 H 93 09/21/17 05:49 09/21/17 05:49 09/21/17 05:49 09/21/17 06:02 09/21/17 05:49 Laboratory Results 09/18/17 06:00 09/20/17 13:48 09/20/17 09/21/17 09/22/17 05:59 05:59 05:59 Intake Total 1260 1669 300 Output Total 1400 630 Balance -140 1039 300 PT 15.6 SEC (12.0-15.0) H 09/18/17 06:00 INR 1.22 (0.83-1.16) H 09/18/17 06:00 - Physical Exam Constitutional: no apparent distress, appears nourished, not in pain, No uncomfortable Cardiovascular: regular rate and rhythym, no murmur, rub, or gallop, edema (1+ LLE, trace RLE) Respiratory: no respiratory distress, no rales or rhonchi, clear to auscultation , reduced air movement (bilat bases) Gastrointestinal: normoactive bowel sounds, soft, non-tender abdomen, no palpable masses, No distension Neurologic: AAOx3 Psychiatric: interacting appropriately, not anxious, not encephalopathic, thought process linear ICD10 Worksheet Patient Problems: Problems Problem Status Onset Fall from ladder Acute Multiple fractures of ribs of left side Acute Left pulmonary contusion Acute Splenic hemorrhage Acute Sacral fracture, closed Acute Bilateral pubic rami fractures Acute Hemothorax on left Acute Thrombocytopenia Acute Cirrhosis of liver Acute LAD (lymphadenopathy), mediastinal Acute Splenic laceration Acute
[2017-09-21] MEDS ORDERED: MAGNESIUM HYDROXIDE 30 ML UDCUP PO PRN (14:53)
[2017-09-21] MEDS ORDERED: POLYETHYLENE GLYCOL 3350 17 GM PKT PO PRN (14:53)
[2017-09-21] MEDS: PRESERVISION AREDS2 FORMULA EYE VIT 1 EACH PO SCH ×2 (16:36→19:14)
[2017-09-22] MEDS: ACETAMINOPHEN 325 MG TAB PO SCH ×3 (06:31→22:37)
[2017-09-22] MEDS: oxyCODONE IR 5 MG TAB PO PRN ×5 (06:32→20:55)
[2017-09-22] MEDS: METHOCARBAMOL 500 MG TAB PO PRN (06:32)
[2017-09-22] MEDS: SENNOSIDES/DOCUSATE SODIUM TAB PO SCH ×2 (08:35→21:26)
[2017-09-22] MEDS: PRESERVISION AREDS2 FORMULA EYE VIT 1 EACH PO SCH ×2 (08:35→17:13)
[2017-09-22] MEDS: LACTULOSE 20 GM/30 ML UDCUP PO SCH ×2 (08:35→21:00)
[2017-09-22] MEDS: MULTIVITAMINS 1 EACH TAB PO SCH (08:35)
[2017-09-22] MEDS: RIFAXIMIN 550 MG TAB PO SCH ×2 (08:35→21:26)
[2017-09-22] MEDS: PANTOPRAZOLE SODIUM 40 MG TAB PO SCH (08:36)
[2017-09-22] MEDS: PATCH REMOVAL 1 EA PATCH TD SCH ×2 (08:38→21:46)
[2017-09-22] MEDS: LIDOCAINE 4%/MENTHOL 1% PATCH TD SCH (08:38)
[2017-09-22] MEDS: ENOXAPARIN 40 MG/0.4 ML SYR SC SCH (08:39)
[2017-09-22] MEDS: morphINE SR 15 MG TAB PO SCH ×2 (08:41→21:27)
[2017-09-22] MEDS: IBUPROFEN 600 MG TAB PO SCH ×3 (08:47→21:27)
--- NOTE | 2017-09-22 12:09 | HOSPPROG ---
Hospitalist Progress Note Assessment/Plan: Assessment: 67 yo M p/w traumatic fall resulting in rib and pelvic fractures Plan: # Multiple trauma with pelvic fractures and left rib fractures, touchdown weightbearing status on the left lower extremity. -pain well controlled, oxy IR PRN + PRN tylenol/NSAID + PRN robaxin + MS 15 bid -f/u Dr. Hoang in 1 week, Dr. Bell 2 weeks -counseled patient extensively that his pelvic fractures, while they may cause significant inguinal pain w/ therapy, are not compromising his hip joints, and he will have repeat imaging to demonstrate alignment when he follows up w/ Dr. Bell # TBI. Mild ongoing word finding difficulty -ongoing [employer]/Cog therapy # Chronic pain w/ continuous opiate dependency. Patient reports he has electively weaned down to 40 tabs opiate monthly, reports good pain mgmt here, patient is not over-medicating, but PCP will want to monitor Rx usage as outpt to ensure he is weaning as he recovers # Edema, left lower extremity. No DVT on US, no further w/u indicated -suspect iatrogenic w/ recent hospitalization and underlying cirrhosis -patient is naturesing well, no indication for diuretic at this time -patient amenable to TEDs, elevate when in bed # Constipation. Alleviated w/ stool softener, continue -full bowel regimen ordered PRN # Hepatic cirrhosis, most likely compensated, status post treatment of hepatitis C and cessation of alcohol abuse. With history of hepatic encephalopathy, we will continue rifaximin and lactulose. -patient had CT abd w/ IV contrast on 09/09 and 09/10, demonstrating cirrhosis and portal HTN -diuretic may be useful to maintain neutral fluid balance in the future, but, w / his mobility limitations s/p fall, will hold on starting a diuretic that would necessitate more frequent trips to bathroom, would rec aldactone/lasix as outpatient -recommend establishing him w/ outpt hepatology # Coagulopathy, possibly due to liver disease, versus consumption coagulopathy due to multiple injuries. PT, PTT improving on labs 09/18/2017. # Pulmonary contusion. He will have incentive spirometry and oxygen as necessary. # Anemia due to likely bleeding from multiple sites, including pulmonary contusions, splenic laceration and multiple fractures. He required a transfusion -stable 09/18 # Thrombocytopenia improving on CBC 09/17/2017 and 09/18/2017. Prophylaxis. High risk, lovenox 40 Diet. Regular Code. Full Dispo. ADD 10/01, requires ongoing therapy; patient would like to discuss discharge plan/timeline w/ Dr. León and therapy team this week, as he is making active structural adaptations to his home (stair rails) in preparation of return home Subjective: reports pain at approx 9 stairs, patient worried about healing of his pelvic fxr, amenable to TEDs Objective: Vital Signs Temp Pulse Resp BP Pulse Ox 36.8 C 77 16 135/85 H 93 09/22/17 06:16 09/22/17 06:16 09/22/17 06:16 09/22/17 06:16 09/22/17 06:16 Laboratory Results 09/18/17 06:00 09/20/17 13:48 09/21/17 09/22/17 09/23/17 05:59 05:59 05:59 Intake Total 1669 1365 270 Output Total 630 950 310 Balance 1039 415 -40 PT 15.6 SEC (12.0-15.0) H 09/18/17 06:00 INR 1.22 (0.83-1.16) H 09/18/17 06:00 - Time Spent With Patient Time Spent with Patient: greater than 35 minutes Time Spent with Patient: Greater than 35 minutes spent on this patients care, greater than 50% of time spent counseling, educating, and coordinating care regarding the above mentioned plan. - Physical Exam Constitutional: no apparent distress, appears nourished, not in pain, No uncomfortable Neurologic: AAOx3, No weakness (motor 5/5 bilat LE hip flexion w/o pain), No facial droop Psychiatric: not anxious, not encephalopathic, other (intermittent mild word- finding difficulty), No agitated ICD10 Worksheet Patient Problems: Problems Problem Status Onset Bilateral pubic rami fractures Acute Cirrhosis of liver Acute Fall from ladder Acute Hemothorax on left Acute LAD (lymphadenopathy), mediastinal Acute Left pulmonary contusion Acute Multiple fractures of ribs of left side Acute Sacral fracture, closed Acute Splenic hemorrhage Acute Splenic laceration Acute Thrombocytopenia Acute
[2017-09-23] MEDS: oxyCODONE IR 5 MG TAB PO PRN ×4 (04:10→17:19)
[2017-09-23] MEDS: ACETAMINOPHEN 325 MG TAB PO SCH ×3 (05:29→22:03)
[2017-09-23] MEDS: METHOCARBAMOL 500 MG TAB PO PRN ×2 (06:38→22:03)
[2017-09-23] MEDS: PRESERVISION AREDS2 FORMULA EYE VIT 1 EACH PO SCH ×2 (08:37→17:17)
[2017-09-23] MEDS: LACTULOSE 20 GM/30 ML UDCUP PO SCH ×2 (08:37→20:18)
[2017-09-23] MEDS: IBUPROFEN 600 MG TAB PO SCH (08:37)
[2017-09-23] MEDS: LIDOCAINE 4%/MENTHOL 1% PATCH TD SCH (08:37)
[2017-09-23] MEDS: morphINE SR 15 MG TAB PO SCH ×2 (08:37→20:17)
[2017-09-23] MEDS: SENNOSIDES/DOCUSATE SODIUM TAB PO SCH ×2 (08:37→20:19)
[2017-09-23] MEDS: PANTOPRAZOLE SODIUM 40 MG TAB PO SCH (08:37)
[2017-09-23] MEDS: RIFAXIMIN 550 MG TAB PO SCH ×2 (08:38→20:18)
[2017-09-23] MEDS: MULTIVITAMINS 1 EACH TAB PO SCH (08:38)
[2017-09-23] MEDS: ENOXAPARIN 40 MG/0.4 ML SYR SC SCH (08:38)
--- NOTE | 2017-09-23 12:10 | SOAPPROG ---
SOAP Progress Note Assessment/Plan: Assessment: Multiple trauma with pelvic fractures and left rib fractures, touchdown weightbearing status on the left lower extremity. * Initial functional independence measure 77 on 09/20/2017. Standby assist for bed mobility. Transferring standby assist with front wheeled walker. Difficulty to comply with weight-bearing part due to left thoracic pain from rib fractures. Did a car transfer with standby assist. Grooming and hygiene with setup while seated. Upper body dressing requires minimum minimal assist to standby assist, lower body dressing requires setup to standby assist. Bathing seated with minimal assist and shower transfer with minimal assist. * Has climbed and descended 9 stairs with left-sided crutch and right-sided rail. Not working on longer distance ambulation due to difficulties maintaining toe-touch weight-bearing. * Continue PT and OT to optimize mobility and activities of daily living towards the modified independent level for discharge home. Symptoms of TBI, though he denies loss of consciousness, with deficits to memory and attention. Assessment and treatment per Speech and Language Pathology. Pain management. * Improved. Continue morphine SR 15 mg twice daily, oxycodone 5-15 mg q.3 hours p.r.n., acetaminophen 650 mg three times daily scheduled. * Unclear if scheduled ibuprofen 600 mg three times daily has helped. No significant decrease in opiate use. Will change ibuprofen to p.r.n. * Change methocarbamol to p.r.n.. Using occasionally, approximately once per day. Edema, left lower extremity. DVT ruled out with ultrasound bilateral lower extremities 09/20/2017. Ibuprofen may contribute. Continue to monitor. * CMP 09/20/2017 showed no renal or hepatic decompensation. Constipation. * Continue lactulose. * Increase senna/docusate from 1 tablet twice daily to 2 tablets twice daily starting 09/17/2017. Hepatic cirrhosis, most likely compensated, status post treatment of hepatitis C and cessation of alcohol abuse. With history of hepatic encephalopathy, we will continue rifaximin and lactulose. Coagulopathy, possibly due to liver disease, versus consumption coagulopathy due to multiple injuries. PT, PTT improving on labs 09/18/2017. Pulmonary contusion. He will have incentive spirometry and oxygen as necessary. Anemia due to likely bleeding from multiple sites, including pulmonary contusions, splenic laceration and multiple fractures. He required a transfusion yesterday. * Improving on CBC 09/17/2017. Stable on labs 09/18/2017. Thrombocytopenia improving on CBC 09/17/2017 and 09/18/2017. Prophylaxis. With improving coagulation studies and platelet count, and stable anemia, but continued greatly reduced mobility, initiated enoxaparin 40 mg subcutaneous q.day starting 09/18/2017. Continue sequential compression devices on his legs at night. Initiated pantoprazole 40 mg p.o. Q.day starting 2017 due to concurrent use of enoxaparin and ibuprofen. FOLLOWUP: He is recommended to follow up with Dr. Hoang of the trauma service in approximately 2 weeks or the week of 09/30/2017. He is to follow up with orthopedic surgeon, Dr. Patricio Bell in 2-3 weeks, again, the week of 09/30 to . His primary care is at the [facility]. DISPOSITION: Needs to be able to climb multiple steps to be able to return home. Set tentative discharge date of 10/01/2017. 09/23/17 12:03 Subjective: Increased pain today after increased activity yesterday, including climbing and descending 9 steps. Otherwise without planes. Sleeping well. No fevers or chills. Pain is equally significant in left thorax from rib fractures and in pelvis from pelvic fractures. Objective: Vital Signs Temp Pulse Resp BP Pulse Ox 36.5 C 59 L 16 136/83 H 95 09/23/17 06:38 09/23/17 06:38 09/23/17 06:38 09/23/17 06:38 09/23/17 06:38 Laboratory Results 09/18/17 06:00 09/20/17 13:48 09/22/17 09/23/17 09/24/17 05:59 05:59 05:59 Intake Total 1365 1310 356 Output Total 950 310 Balance 415 1000 356 PT 15.6 SEC (12.0-15.0) H 09/18/17 06:00 INR 1.22 (0.83-1.16) H 09/18/17 06:00 Physical Exam - Physical Exam General Appearance: WD/WN, alert, no apparent distress Respiratory: normal breath sounds, No crackles, No rhonchi, No wheezing Cardiac/Chest: regular rate, rhythm, edema (Trace on left lower extremity pretibial), No diastolic murmur, No systolic murmur Skin: normal color, warm/dry Neuro/Psych: no motor/sensory deficits, alert, normal mood/affect, oriented x 3 ICD10 Worksheet Patient Problems: Problems Problem Status Onset Bilateral pubic rami fractures Acute Cirrhosis of liver Acute Fall from ladder Acute Hemothorax on left Acute LAD (lymphadenopathy), mediastinal Acute Left pulmonary contusion Acute Multiple fractures of ribs of left side Acute Sacral fracture, closed Acute Splenic hemorrhage Acute Splenic laceration Acute Thrombocytopenia Acute
[2017-09-23] MEDS: PATCH REMOVAL 1 EA PATCH TD SCH (20:21)
[2017-09-23] MEDS: IBUPROFEN 600 MG TAB PO PRN (22:03)
[2017-09-24] MEDS: ACETAMINOPHEN 325 MG TAB PO SCH (22:36)
[2017-09-25] MEDS: ACETAMINOPHEN 325 MG TAB PO SCH ×5 (06:42→20:22)
[2017-09-25] MEDS: METHOCARBAMOL 500 MG TAB PO PRN ×2 (06:43→19:26)
[2017-09-25] MEDS: oxyCODONE IR 5 MG TAB PO PRN ×4 (06:43→19:27)
[2017-09-25] MEDS: ENOXAPARIN 40 MG/0.4 ML SYR SC SCH ×2 (08:01→15:44)
[2017-09-25] MEDS: PRESERVISION AREDS2 FORMULA EYE VIT 1 EACH PO SCH ×3 (08:04→17:13)
[2017-09-25] MEDS: LIDOCAINE 4%/MENTHOL 1% PATCH TD SCH ×2 (08:04→15:45)
[2017-09-25] MEDS: LACTULOSE 20 GM/30 ML UDCUP PO SCH ×3 (08:04→20:22)
[2017-09-25] MEDS: RIFAXIMIN 550 MG TAB PO SCH ×3 (08:05→20:22)
[2017-09-25] MEDS: MULTIVITAMINS 1 EACH TAB PO SCH ×2 (08:05→15:45)
[2017-09-25] MEDS: PANTOPRAZOLE SODIUM 40 MG TAB PO SCH ×2 (08:05→15:45)
[2017-09-25] MEDS: morphINE SR 15 MG TAB PO SCH ×3 (08:05→20:22)
[2017-09-25] MEDS: SENNOSIDES/DOCUSATE SODIUM TAB PO SCH ×3 (08:05→20:22)
--- NOTE | 2017-09-25 15:02 | SOAPPROG ---
SOAP Progress Note Assessment/Plan: Assessment: Multiple trauma with pelvic fractures and left rib fractures, touchdown weightbearing status on the left lower extremity. * Initial functional independence measure 77 on 09/20/2017, improved to 83 as of . Standby assist for mobility, climbed and descended climb 9 stairs with 1 rail and 1 crutch contact guard to standby assist. Unable to retain strategies for touchdown weight-bearing and not compliant with touchdown weight- bearing. Upper body and lower body dressing are done with supervision and cues. Bathing requires minimal assist. Did a car transfer with standby assist. * Not working on longer distance ambulation due to difficulties maintaining toe- touch weight-bearing. He is unable to retain strategies. * Discussed with orthopedic surgeon Dr. Bell, 09/25/2017. Obtained pelvic x-ray : No change in fracture positions. As patient has pain after physical therapy , would not advance weight-bearing status. Consider nonweightbearing, with which she might have better compliance. Consider hinged knee brace with ambulation to prevent left foot from touching the ground. * Continue PT and OT to optimize mobility and activities of daily living towards the modified independent level for discharge home. Symptoms of TBI, though he denies loss of consciousness, with deficits to memory and attention. * Despite frequent repetition, unable to retain strategies regarding touchdown weight-bearing. * Possible pre-existing cognitive impairment. * Decreased memory, executive function, attention, working memory. Word- finding difficulties. * Continue Speech and Language Pathology. Pain management. * Improved. Continue morphine SR 15 mg twice daily, oxycodone 5-15 mg q.3 hours p.r.n., acetaminophen 650 mg three times daily scheduled. * Unclear if scheduled ibuprofen 600 mg three times daily has helped. No significant decrease in opiate use. Will change ibuprofen to p.r.n. * Change methocarbamol to p.r.n.. Using occasionally, approximately once per day. Edema, left lower extremity. DVT ruled out with ultrasound bilateral lower extremities 09/20/2017. Ibuprofen may contribute. Continue to monitor. * CMP 09/20/2017 showed no renal or hepatic decompensation. Constipation. * Continue lactulose. * Increase senna/docusate from 1 tablet twice daily to 2 tablets twice daily starting 09/17/2017. Hepatic cirrhosis, most likely compensated, status post treatment of hepatitis C and cessation of alcohol abuse. With history of hepatic encephalopathy, we will continue rifaximin and lactulose. Coagulopathy, possibly due to liver disease, versus consumption coagulopathy due to multiple injuries. PT, PTT improving on labs 09/18/2017. Pulmonary contusion. He will have incentive spirometry and oxygen as necessary. Anemia due to likely bleeding from multiple sites, including pulmonary contusions, splenic laceration and multiple fractures. He required a transfusion the day before hospital discharge. * Improving on CBC 09/17/2017. Stable on labs 09/18/2017. Thrombocytopenia improving on CBC 09/17/2017 and 09/18/2017. Prophylaxis. With improving coagulation studies and platelet count, and stable anemia, but continued greatly reduced mobility, initiated enoxaparin 40 mg subcutaneous q.day starting 09/18/2017. Continue sequential compression devices on his legs at night. Initiated pantoprazole 40 mg p.o. Q.day starting 2017 due to concurrent use of enoxaparin and ibuprofen. FOLLOWUP: He is recommended to follow up with Dr. Hoang of the trauma service in approximately 2 weeks or the week of 09/30/2017. He is to follow up with orthopedic surgeon, Dr. Patricio Bell after discharge Dr. Bell's clinic phone number is [phone]. His primary care is at the [place]. DISPOSITION: Attended staffing, 15 min. Discussed with case management, dietitian, nursing, PT, OT, [employer]. Needs to be able to climb multiple steps to be able to return home. He will have a home visit prior to discharge. Continue tentative discharge date of 10/01/2017. 09/25/17 16:44 Subjective: Overall doing okay but sometimes pain is exacerbated. Sleeping well. Bowels moving. Objective: Vital Signs Temp Pulse Resp BP Pulse Ox 36.8 C 60 16 140/82 H 95 09/25/17 06:33 09/25/17 06:33 09/25/17 06:33 09/25/17 06:33 09/25/17 06:33 Laboratory Results 09/18/17 06:00 09/20/17 13:48 09/24/17 09/25/17 09/26/17 05:59 05:59 05:59 Intake Total 1072 315 600 Output Total 100 Balance 972 315 600 PT 15.6 SEC (12.0-15.0) H 09/18/17 06:00 INR 1.22 (0.83-1.16) H 09/18/17 06:00 - Time Spent With Patient Time Spent With Patient: Greater than 35 min floor time today, including more than 50% of time in coordination of care during staffing meeting, and in conversation with orthopedic surgeon Dr. Bell, and counseling patient. Physical Exam - Physical Exam General Appearance: WD/WN, alert, no apparent distress Respiratory: normal breath sounds, No crackles, No rhonchi, No wheezing Cardiac/Chest: regular rate, rhythm, No edema, No diastolic murmur, No systolic murmur Skin: normal color, warm/dry Neuro/Psych: alert, normal mood/affect, oriented x 3 ICD10 Worksheet Patient Problems: Problems Problem Status Onset Bilateral pubic rami fractures Acute Cirrhosis of liver Acute Fall from ladder Acute Hemothorax on left Acute LAD (lymphadenopathy), mediastinal Acute Left pulmonary contusion Acute Multiple fractures of ribs of left side Acute Sacral fracture, closed Acute Splenic hemorrhage Acute Splenic laceration Acute Thrombocytopenia Acute
[2017-09-25] MEDS: ARNICA MONTANA PO SCH ×2 (15:26→20:23)
[2017-09-25] MEDS: PATCH REMOVAL 1 EA PATCH TD SCH ×2 (15:46→20:26)
[2017-09-26] MEDS: oxyCODONE IR 5 MG TAB PO PRN ×5 (03:57→20:40)
[2017-09-26] MEDS: METHOCARBAMOL 500 MG TAB PO PRN ×2 (03:57→20:29)
[2017-09-26] MEDS: ACETAMINOPHEN 325 MG TAB PO SCH ×3 (06:08→21:46)
[2017-09-26] MEDS: PRESERVISION AREDS2 FORMULA EYE VIT 1 EACH PO SCH ×2 (08:35→17:42)
[2017-09-26] MEDS: RIFAXIMIN 550 MG TAB PO SCH ×2 (08:36→20:29)
[2017-09-26] MEDS: morphINE SR 15 MG TAB PO SCH ×2 (08:36→20:29)
[2017-09-26] MEDS: SENNOSIDES/DOCUSATE SODIUM TAB PO SCH ×2 (08:36→20:29)
[2017-09-26] MEDS: PANTOPRAZOLE SODIUM 40 MG TAB PO SCH (08:36)
[2017-09-26] MEDS: MULTIVITAMINS 1 EACH TAB PO SCH (08:36)
[2017-09-26] MEDS: LACTULOSE 20 GM/30 ML UDCUP PO SCH ×2 (08:37→20:28)
[2017-09-26] MEDS: LIDOCAINE 4%/MENTHOL 1% PATCH TD SCH (08:37)
[2017-09-26] MEDS: ENOXAPARIN 40 MG/0.4 ML SYR SC SCH (08:37)
[2017-09-26] MEDS: ARNICA MONTANA PO SCH ×3 (08:38→20:29)
--- NOTE | 2017-09-26 10:30 | SOAPPROG ---
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 He reports he was taking acyclovir versus Valacyclovir, dose unknown. Looking into records and calling pharmacy to understand what his dose was. He was getting care at the [place], difficult to obtain records. Discussed with Infectious Disease, only standard precautions are needed for open HSV wound. Counseled the patient at length about need to keep his weight off of his leg, he can do nonweightbearing instead of toe-touch weight-bearing if necessary. He reports that he is doing home visit later this week. Additional problems reviewed without changes today include pain management, symptoms of TBI, edema, constipation, hepatic cirrhosis, coagulopathy, pulmonary contusion, anemia, thrombocytopenia. Tentative discharge date of , he will need follow up with Dr. Hoang after discharge as well as Dr. Bell. Primary care at the [place]. 09/26/17 10:27 Subjective: Chief complaint: Weight-bearing status and open wound No acute events overnight. Patient denies any new shortness of breath or chest pain, no new numbness, tingling, or weakness. We talked at length about the need to adhere to weight-bearing status and precautions. He also was noted to have a new wound on his right buttock from nursing, he endorses that this is a recurrent wound that he relates to a sexually transmitted disease. He states that he would take and antiviral for this when it appears. He believes it is acyclovir or Valacyclovir. Dose unknown. He notes his pharmacy is at [address] Otherwise he feels that therapy is going well. He notes that he has a pending home visit later this week. Objective: Vital Signs Temp Pulse Resp BP Pulse Ox 37.1 C 65 16 130/82 H 96 09/26/17 06:32 09/26/17 06:32 09/26/17 06:32 09/26/17 06:32 09/26/17 06:32 Laboratory Results 09/18/17 06:00 09/20/17 13:48 06/09/26/17 09/27/17 05:59 05:59 05:59 Intake Total 315 1250 Balance 315 1250 PT 15.6 SEC (12.0-15.0) H 09/18/17 06:00 INR 1.22 (0.83-1.16) H 09/18/17 06:00 Physical Exam - Physical Exam General Appearance: WD/WN, alert, no apparent distress EENT: No scleral icterus (R), No scleral icterus (L) Respiratory: No respiratory distress, No accessory muscle use Cardiac/Chest: regular rate, rhythm, edema (Mild 1+ edema on the left lower limb ) Skin: normal color, warm/dry, other (Extensive bruising on the buttock and lower back. Small ulcerative lesion in the middle of the right buttock, no surrounding erythema, no discharge.), No cyanosis, No diaphoresis Neuro/Psych: alert, normal mood/affect, other (Logical) ICD10 Worksheet Patient Problems: Problems Problem Status Onset Bilateral pubic rami fractures Acute Cirrhosis of liver Acute Fall from ladder Acute Hemothorax on left Acute LAD (lymphadenopathy), mediastinal Acute Left pulmonary contusion Acute Multiple fractures of ribs of left side Acute Sacral fracture, closed Acute Splenic hemorrhage Acute Splenic laceration Acute Thrombocytopenia Acute
[2017-09-26] MEDS: PATCH REMOVAL 1 EA PATCH TD SCH (20:29)
[2017-09-27] MEDS: oxyCODONE IR 5 MG TAB PO PRN ×4 (01:09→20:00)
[2017-09-27] MEDS: METHOCARBAMOL 500 MG TAB PO PRN ×2 (06:31→19:59)
[2017-09-27] MEDS: ACETAMINOPHEN 325 MG TAB PO SCH ×3 (06:31→21:25)
[2017-09-27] MEDS: PRESERVISION AREDS2 FORMULA EYE VIT 1 EACH PO SCH ×2 (08:16→17:23)
[2017-09-27] MEDS: SENNOSIDES/DOCUSATE SODIUM TAB PO SCH ×2 (08:16→19:59)
[2017-09-27] MEDS: LACTULOSE 20 GM/30 ML UDCUP PO SCH ×2 (08:16→19:58)
[2017-09-27] MEDS: MULTIVITAMINS 1 EACH TAB PO SCH (08:17)
[2017-09-27] MEDS: PANTOPRAZOLE SODIUM 40 MG TAB PO SCH (08:17)
[2017-09-27] MEDS: morphINE SR 15 MG TAB PO SCH ×2 (08:17→19:59)
[2017-09-27] MEDS: ENOXAPARIN 40 MG/0.4 ML SYR SC SCH (08:19)
[2017-09-27] MEDS: RIFAXIMIN 550 MG TAB PO SCH ×2 (08:19→19:59)
[2017-09-27] MEDS: LIDOCAINE 4%/MENTHOL 1% PATCH TD SCH (08:20)
[2017-09-27] MEDS ORDERED: ACYCLOVIR 200 MG CAP PO SCH (10:00)
[2017-09-27] MEDS: ARNICA MONTANA PO SCH ×3 (10:09→19:59)
[2017-09-27] MEDS: ACYCLOVIR 400 MG TAB PO SCH ×4 (10:25→21:24)
--- NOTE | 2017-09-27 10:47 | SOAPPROG ---
SOAP Progress Note Assessment/Plan: Assessment: Multiple trauma with pelvic fractures and left rib fractures due to 14 ft fall off a ladder on 09/09/2017, with touchdown weightbearing status on the left lower extremity. * Initial functional independence measure 77 on 09/20/2017, improved to 83 as of . Standby assist for mobility, climbed and descended 9 stairs with 1 rail and 1 crutch contact guard to standby assist. Unable to retain strategies for touchdown weight-bearing and not compliant with touchdown weight-bearing. Upper body and lower body dressing are done with supervision and cues. Bathing requires minimal assist. Did a car transfer with standby assist. * Not working on longer distance ambulation due to difficulties maintaining toe- touch weight-bearing. Observe for improvement with new strategies per PT. * Discussed with orthopedic surgeon Dr. Bell, 09/25/2017. Obtained pelvic x-ray : No change in fracture positions. As patient has pain after physical therapy , would not advance weight-bearing status. Consider nonweightbearing, with which she might have better compliance. * Continue PT and OT to optimize mobility and activities of daily living towards the modified independent level for discharge home. Symptoms of TBI, though he denies loss of consciousness, with deficits to memory and attention. * Despite frequent repetition, unable to retain strategies regarding touchdown weight-bearing. * Possible pre-existing cognitive impairment. * Decreased memory, executive function, attention, working memory. Word- finding difficulties. * Continue Speech and Language Pathology. Pain management. * Improved. Continue morphine SR 15 mg twice daily, oxycodone 5-15 mg q.3 hours p.r.n., acetaminophen 650 mg three times daily scheduled. * Unclear if scheduled ibuprofen 600 mg three times daily has helped. No significant decrease in opiate use. Will change ibuprofen to p.r.n. * Change methocarbamol to p.r.n.. Using occasionally, approximately once per day. Edema, left lower extremity. DVT ruled out with ultrasound bilateral lower extremities 09/20/2017. Ibuprofen may contribute. Continue to monitor. * CMP 09/20/2017 showed no renal or hepatic decompensation. Constipation. * Continue lactulose. * Increase senna/docusate from 1 tablet twice daily to 2 tablets twice daily starting 09/17/2017. Hepatic cirrhosis, most likely compensated, status post treatment of hepatitis C and cessation of alcohol abuse. With history of hepatic encephalopathy, we will continue rifaximin and lactulose. Coagulopathy, possibly due to liver disease, versus consumption coagulopathy due to multiple injuries. PT, PTT improving on labs 09/18/2017. Pulmonary contusion. He will have incentive spirometry and oxygen as necessary. Anemia due to likely bleeding from multiple sites, including pulmonary contusions, splenic laceration and multiple fractures. He required a transfusion the day before hospital discharge. * Improving on CBC 09/17/2017. Stable on labs 09/18/2017. Thrombocytopenia improving on CBC 09/17/2017 and 09/18/2017. Prophylaxis. With improving coagulation studies and platelet count, and stable anemia, but continued greatly reduced mobility, initiated enoxaparin 40 mg subcutaneous q.day starting 09/18/2017 to continue until approximately 4 weeks post injury or 10/07/2017. Continue sequential compression devices on his legs at night. Initiated pantoprazole 40 mg p.o. Q.day starting 09/20/2017 due to concurrent use of enoxaparin and ibuprofen. FOLLOWUP: He is recommended to follow up with Dr. Hoang of the trauma service in approximately 2 weeks or the week of 09/30/2017. He is to follow up with orthopedic surgeon, Dr. Patricio Bell after discharge Dr. Bell's clinic phone number is [phone]. His primary care is at the [facility]. DISPOSITION: Needs to be able to climb multiple steps to be able to return home. He will have a home visit prior to discharge. Continue tentative discharge date of 10/01/2017. 09/27/17 10:42 Subjective: No complaints this morning. Working with therapy. PT has adopted new strategy for compliance with toe-touch weight-bearing; he wears a shoe on the right foot and a sock on the left foot. Objective: Vital Signs Temp Pulse Resp BP Pulse Ox 36.9 C 77 16 150/84 H 96 09/27/17 07:18 09/27/17 07:18 09/27/17 07:18 09/27/17 07:18 09/27/17 07:18 Laboratory Results 09/18/17 06:00 09/20/17 13:48 09/26/17 09/27/17 09/28/17 05:59 05:59 05:59 Intake Total 1250 450 300 Balance 1250 450 300 PT 15.6 SEC (12.0-15.0) H 09/18/17 06:00 INR 1.22 (0.83-1.16) H 09/18/17 06:00 Physical Exam - Physical Exam General Appearance: WD/WN, alert, no apparent distress Respiratory: No respiratory distress, No accessory muscle use Skin: normal color, warm/dry Neuro/Psych: no motor/sensory deficits, alert, normal mood/affect, oriented x 3 , other (Observed ambulating and climbing and descending 3 stairs in PT gym using crutches or crutch plus rail. Fairly good compliance with toe-touch weight-bearing on left lower extremity. Occasional loss of balance with spontaneous correction.) ICD10 Worksheet Patient Problems: Problems Problem Status Onset Bilateral pubic rami fractures Acute Cirrhosis of liver Acute Fall from ladder Acute Hemothorax on left Acute LAD (lymphadenopathy), mediastinal Acute Left pulmonary contusion Acute Multiple fractures of ribs of left side Acute Sacral fracture, closed Acute Splenic hemorrhage Acute Splenic laceration Acute Thrombocytopenia Acute
[2017-09-27] MEDS: IBUPROFEN 600 MG TAB PO PRN (17:54)
[2017-09-27] MEDS: PATCH REMOVAL 1 EA PATCH TD SCH (19:59)
[2017-09-28] MEDS: ACYCLOVIR 400 MG TAB PO SCH ×5 (06:38→20:47)
[2017-09-28] MEDS: ACETAMINOPHEN 325 MG TAB PO SCH ×3 (06:38→20:47)
[2017-09-28] MEDS: METHOCARBAMOL 500 MG TAB PO PRN ×2 (06:39→20:47)
[2017-09-28] MEDS: oxyCODONE IR 5 MG TAB PO PRN ×4 (06:39→20:47)
[2017-09-28] MEDS: LACTULOSE 20 GM/30 ML UDCUP PO SCH ×2 (07:57→20:46)
[2017-09-28] MEDS: PRESERVISION AREDS2 FORMULA EYE VIT 1 EACH PO SCH ×2 (07:57→18:04)
[2017-09-28] MEDS: ARNICA MONTANA PO SCH ×3 (07:58→20:48)
[2017-09-28] MEDS: MULTIVITAMINS 1 EACH TAB PO SCH (07:58)
[2017-09-28] MEDS: SENNOSIDES/DOCUSATE SODIUM TAB PO SCH ×2 (07:58→20:47)
[2017-09-28] MEDS: PANTOPRAZOLE SODIUM 40 MG TAB PO SCH (07:58)
[2017-09-28] MEDS: RIFAXIMIN 550 MG TAB PO SCH ×2 (07:58→20:47)
[2017-09-28] MEDS: ENOXAPARIN 40 MG/0.4 ML SYR SC SCH (07:59)
[2017-09-28] MEDS: LIDOCAINE 4%/MENTHOL 1% PATCH TD SCH (07:59)
[2017-09-28] MEDS: morphINE SR 15 MG TAB PO SCH ×2 (08:00→20:47)
--- NOTE | 2017-09-28 13:20 | SOAPPROG ---
SOAP Progress Note Assessment/Plan: Assessment: Multiple trauma with pelvic fractures and left rib fractures due to 14 ft fall off a ladder on 09/09/2017, with touchdown weightbearing status on the left lower extremity. * Initial functional independence measure 77 on 09/20/2017, improved to 83 as of . Standby assist for mobility, climbed and descended 9 stairs with 1 rail and 1 crutch contact guard to standby assist. Unable to retain strategies for touchdown weight-bearing and not compliant with touchdown weight-bearing. Upper body and lower body dressing are done with supervision and cues. Bathing requires minimal assist. Did a car transfer with standby assist. * Not working on longer distance ambulation due to difficulties maintaining toe- touch weight-bearing. Observe for improvement with new strategies per PT. * Discussed with orthopedic surgeon Dr. Bell, 09/25/2017. Obtained pelvic x-ray : No change in fracture positions. As patient has pain after physical therapy , would not advance weight-bearing status. Consider nonweightbearing, with which she might have better compliance. * Continue PT and OT to optimize mobility and activities of daily living towards the modified independent level for discharge home. Symptoms of TBI, though he denies loss of consciousness, with deficits to memory and attention. * Despite frequent repetition, unable to retain strategies regarding touchdown weight-bearing. * Possible pre-existing cognitive impairment. * Decreased memory, executive function, attention, working memory. Word- finding difficulties. * Continue Speech and Language Pathology. Pain management. * Improved. Continue morphine SR 15 mg twice daily, oxycodone 5-15 mg q.3 hours p.r.n., acetaminophen 650 mg three times daily scheduled. * Unclear if scheduled ibuprofen 600 mg three times daily has helped. No significant decrease in opiate use. Will change ibuprofen to p.r.n. * Change methocarbamol to p.r.n.. Using occasionally, approximately once per day. Edema, left lower extremity. DVT ruled out with ultrasound bilateral lower extremities 09/20/2017. Ibuprofen may contribute. Continue to monitor. * CMP 09/20/2017 showed no renal or hepatic decompensation. Constipation. * Continue lactulose. * Increase senna/docusate from 1 tablet twice daily to 2 tablets twice daily starting 09/17/2017. Hepatic cirrhosis, most likely compensated, status post treatment of hepatitis C and cessation of alcohol abuse. With history of hepatic encephalopathy, we will continue rifaximin and lactulose. Coagulopathy, possibly due to liver disease, versus consumption coagulopathy due to multiple injuries. PT, PTT improving on labs 09/18/2017. Pulmonary contusion. He will have incentive spirometry and oxygen as necessary. Anemia due to likely bleeding from multiple sites, including pulmonary contusions, splenic laceration and multiple fractures. He required a transfusion the day before hospital discharge. * Improving on CBC 09/17/2017. Stable on labs 09/18/2017. Thrombocytopenia improving on CBC 09/17/2017 and 09/18/2017. Prophylaxis. With improving coagulation studies and platelet count, and stable anemia, but continued greatly reduced mobility, initiated enoxaparin 40 mg subcutaneous q.day starting 09/18/2017 to continue until approximately 4 weeks post injury or 10/07/2017. Continue sequential compression devices on his legs at night. Initiated pantoprazole 40 mg p.o. Q.day starting 09/20/2017 due to concurrent use of enoxaparin and ibuprofen. Plan: 09/28/17 13:19 Subjective: doing well. no new complaints Objective: Vital Signs Temp Pulse Resp BP Pulse Ox 36.8 C 72 18 129/82 H 96 09/28/17 07:46 09/28/17 07:46 09/28/17 07:46 09/28/17 07:46 09/28/17 07:46 Laboratory Results 09/18/17 06:00 09/20/17 13:48 09/27/17 09/28/17 09/29/17 05:59 05:59 05:59 Intake Total 450 896 716 Output Total 650 Balance 450 246 716 PT 15.6 SEC (12.0-15.0) H 09/18/17 06:00 INR 1.22 (0.83-1.16) H 09/18/17 06:00 Physical Exam - Physical Exam General Appearance: WD/WN, alert, no apparent distress Neck: supple Respiratory: lungs clear, No respiratory distress Cardiac/Chest: edema (left leg) Neuro/Psych: alert, normal mood/affect ICD10 Worksheet Patient Problems: Problems Problem Status Onset Bilateral pubic rami fractures Acute Cirrhosis of liver Acute Fall from ladder Acute Hemothorax on left Acute LAD (lymphadenopathy), mediastinal Acute Left pulmonary contusion Acute Multiple fractures of ribs of left side Acute Sacral fracture, closed Acute Splenic hemorrhage Acute Splenic laceration Acute Thrombocytopenia Acute
[2017-09-28] MEDS: PATCH REMOVAL 1 EA PATCH TD SCH (20:48)
[2017-09-29] MEDS: ACYCLOVIR 400 MG TAB PO SCH ×5 (06:37→21:28)
[2017-09-29] MEDS: oxyCODONE IR 5 MG TAB PO PRN ×3 (06:38→15:25)
[2017-09-29] MEDS: ACETAMINOPHEN 325 MG TAB PO SCH ×3 (06:38→21:11)
[2017-09-29] MEDS: METHOCARBAMOL 500 MG TAB PO PRN (06:38)
[2017-09-29] MEDS: ENOXAPARIN 40 MG/0.4 ML SYR SC SCH (08:07)
[2017-09-29] MEDS: PRESERVISION AREDS2 FORMULA EYE VIT 1 EACH PO SCH ×2 (08:11→17:14)
[2017-09-29] MEDS: ARNICA MONTANA PO SCH ×3 (08:11→21:28)
[2017-09-29] MEDS: LACTULOSE 20 GM/30 ML UDCUP PO SCH ×2 (08:12→21:11)
[2017-09-29] MEDS: LIDOCAINE 4%/MENTHOL 1% PATCH TD SCH (08:13)
[2017-09-29] MEDS: MULTIVITAMINS 1 EACH TAB PO SCH (08:13)
[2017-09-29] MEDS: morphINE SR 15 MG TAB PO SCH ×2 (08:13→21:12)
[2017-09-29] MEDS: RIFAXIMIN 550 MG TAB PO SCH ×2 (08:14→21:11)
[2017-09-29] MEDS: PANTOPRAZOLE SODIUM 40 MG TAB PO SCH (08:14)
[2017-09-29] MEDS: SENNOSIDES/DOCUSATE SODIUM TAB PO SCH ×2 (08:15→21:11)
[2017-09-29] MEDS: PATCH REMOVAL 1 EA PATCH TD SCH (21:10)
--- NOTE | 2017-09-29 21:15 | SOAPPROG ---
SOAP Progress Note Assessment/Plan: Assessment: Multiple trauma with pelvic fractures and left rib fractures due to 14 ft fall off a ladder on 09/09/2017, with touchdown weightbearing status on the left lower extremity. * Initial functional independence measure 77 on 09/20/2017, improved to 83 as of . Standby assist for mobility, climbed and descended 9 stairs with 1 rail and 1 crutch contact guard to standby assist. Unable to retain strategies for touchdown weight-bearing and not compliant with touchdown weight-bearing. Upper body and lower body dressing are done with supervision and cues. Bathing requires minimal assist. Did a car transfer with standby assist. * Not working on longer distance ambulation due to difficulties maintaining toe- touch weight-bearing. Observe for improvement with new strategies per PT. * Discussed with orthopedic surgeon Dr. Bell, 09/25/2017. Obtained pelvic x-ray : No change in fracture positions. As patient has pain after physical therapy , would not advance weight-bearing status. Consider nonweightbearing, with which she might have better compliance. * Continue PT and OT to optimize mobility and activities of daily living towards the modified independent level for discharge home. Symptoms of TBI, though he denies loss of consciousness, with deficits to memory and attention. * Despite frequent repetition, unable to retain strategies regarding touchdown weight-bearing. * Possible pre-existing cognitive impairment. * Decreased memory, executive function, attention, working memory. Word- finding difficulties. * Continue Speech and Language Pathology. Pain management. * Improved. Continue morphine SR 15 mg twice daily, oxycodone 5-15 mg q.3 hours p.r.n., acetaminophen 650 mg three times daily scheduled. * Unclear if scheduled ibuprofen 600 mg three times daily has helped. No significant decrease in opiate use. Will change ibuprofen to p.r.n. * Change methocarbamol to p.r.n.. Using occasionally, approximately once per day. Edema, left lower extremity. DVT ruled out with ultrasound bilateral lower extremities 09/20/2017. Ibuprofen may contribute. Continue to monitor. * CMP 09/20/2017 showed no renal or hepatic decompensation. Constipation. * Continue lactulose. * Increase senna/docusate from 1 tablet twice daily to 2 tablets twice daily starting 09/17/2017. Hepatic cirrhosis, most likely compensated, status post treatment of hepatitis C and cessation of alcohol abuse. With history of hepatic encephalopathy, we will continue rifaximin and lactulose. Coagulopathy, possibly due to liver disease, versus consumption coagulopathy due to multiple injuries. PT, PTT improving on labs 09/18/2017. Pulmonary contusion. He will have incentive spirometry and oxygen as necessary. Anemia due to likely bleeding from multiple sites, including pulmonary contusions, splenic laceration and multiple fractures. He required a transfusion the day before hospital discharge. * Improving on CBC 09/17/2017. Stable on labs 09/18/2017. Thrombocytopenia improving on CBC 09/17/2017 and 09/18/2017. Prophylaxis. With improving coagulation studies and platelet count, and stable anemia, but continued greatly reduced mobility, initiated enoxaparin 40 mg subcutaneous q.day starting 09/18/2017 to continue until approximately 4 weeks post injury or 10/07/2017. Continue sequential compression devices on his legs at night. Initiated pantoprazole 40 mg p.o. Q.day starting 09/20/2017 due to concurrent use of enoxaparin and ibuprofen. Plan: 09/28/17 13:19 Subjective: no new complaints Objective: Vital Signs Temp Pulse Resp BP Pulse Ox 36.9 C 69 14 129/75 H 93 09/29/17 18:28 09/29/17 18:28 09/29/17 18:28 09/29/17 18:28 09/29/17 18:28 Laboratory Results 09/18/17 06:00 09/20/17 13:48 09/28/17 09/29/17 09/30/17 05:59 05:59 05:59 Intake Total 896 1036 200 Output Total 650 Balance 246 1036 200 PT 15.6 SEC (12.0-15.0) H 09/18/17 06:00 INR 1.22 (0.83-1.16) H 09/18/17 06:00 Physical Exam - Physical Exam General Appearance: WD/WN, alert, no apparent distress Neck: supple Respiratory: No respiratory distress Neuro/Psych: alert, normal mood/affect, oriented x 3 ICD10 Worksheet Patient Problems: Problems Problem Status Onset Bilateral pubic rami fractures Acute Cirrhosis of liver Acute Fall from ladder Acute Hemothorax on left Acute LAD (lymphadenopathy), mediastinal Acute Left pulmonary contusion Acute Multiple fractures of ribs of left side Acute Sacral fracture, closed Acute Splenic hemorrhage Acute Splenic laceration Acute Thrombocytopenia Acute
[2017-09-30] MEDS: METHOCARBAMOL 500 MG TAB PO PRN (05:25)
[2017-09-30] MEDS: oxyCODONE IR 5 MG TAB PO PRN ×3 (05:26→16:55)
[2017-09-30] MEDS: ACETAMINOPHEN 325 MG TAB PO SCH ×3 (06:33→20:38)
[2017-09-30] MEDS: ACYCLOVIR 400 MG TAB PO SCH ×5 (06:34→20:36)
[2017-09-30] MEDS: LIDOCAINE 4%/MENTHOL 1% PATCH TD SCH (08:36)
[2017-09-30] MEDS: ENOXAPARIN 40 MG/0.4 ML SYR SC SCH (08:37)
[2017-09-30] MEDS: LACTULOSE 20 GM/30 ML UDCUP PO SCH ×2 (08:38→20:35)
[2017-09-30] MEDS: MULTIVITAMINS 1 EACH TAB PO SCH (08:39)
[2017-09-30] MEDS: SENNOSIDES/DOCUSATE SODIUM TAB PO SCH ×2 (08:39→20:37)
[2017-09-30] MEDS: RIFAXIMIN 550 MG TAB PO SCH ×2 (08:39→20:35)
[2017-09-30] MEDS: PANTOPRAZOLE SODIUM 40 MG TAB PO SCH (08:39)
[2017-09-30] MEDS: PRESERVISION AREDS2 FORMULA EYE VIT 1 EACH PO SCH ×2 (08:39→16:51)
[2017-09-30] MEDS: ARNICA MONTANA PO SCH ×3 (08:39→20:50)
[2017-09-30] MEDS: morphINE SR 15 MG TAB PO SCH ×2 (08:39→20:36)
--- NOTE | 2017-09-30 09:36 | SOAPPROG ---
SOAP Progress Note Assessment/Plan: Assessment: Multiple trauma with pelvic fractures and left rib fractures due to 14 ft fall off a ladder on 09/09/2017, with touchdown weightbearing status on the left lower extremity. * Initial functional independence measure 77 on 09/20/2017, improved to 83 as of . Standby assist for mobility, climbed and descended 9 stairs with 1 rail and 1 crutch contact guard to standby assist. Upper body and lower body dressing are done with supervision and cues. Bathing requires minimal assist. Did a car transfer with standby assist. * Improved compliance with touchdown weight-bearing left lower extremity. * Discussed with orthopedic surgeon Dr. Bell, 09/25/2017. Obtained pelvic x-ray : No change in fracture positions. As patient has pain after physical therapy , would not advance weight-bearing status. * Independent in his room as of 09/29/2017. * Continue PT and OT to optimize mobility and activities of daily living towards the modified independent level for discharge home. Symptoms of TBI, though he denies loss of consciousness, with deficits to memory and attention. * Despite frequent repetition, unable to retain strategies regarding touchdown weight-bearing. * Possible pre-existing cognitive impairment. * Decreased memory, executive function, attention, working memory. Word- finding difficulties. * Continue Speech and Language Pathology. Pain management. * Improved. Discontinue morphine SR 15 mg twice daily on evening of 09/30/2017. Continue oxycodone 5-15 mg q.3 hours p.r.n., acetaminophen 650 mg three times daily scheduled. * Unclear if scheduled ibuprofen 600 mg three times daily has helped. No significant decrease in opiate use. Will change ibuprofen to p.r.n. * Change methocarbamol to p.r.n.. Using occasionally, approximately once per day. Edema, left lower extremity. DVT ruled out with ultrasound bilateral lower extremities 09/20/2017. Ibuprofen may contribute. Continue to monitor. * CMP 09/20/2017 showed no renal or hepatic decompensation. * Resolved, 09/30/2017. Constipation. * Continue lactulose. * Increase senna/docusate from 1 tablet twice daily to 2 tablets twice daily starting 09/17/2017. Hepatic cirrhosis, most likely compensated, status post treatment of hepatitis C and cessation of alcohol abuse. With history of hepatic encephalopathy, we will continue rifaximin and lactulose. Coagulopathy, possibly due to liver disease, versus consumption coagulopathy due to multiple injuries. PT, PTT improving on labs 09/18/2017. Pulmonary contusion. He will have incentive spirometry and oxygen as necessary. Anemia due to likely bleeding from multiple sites, including pulmonary contusions, splenic laceration and multiple fractures. He required a transfusion the day before hospital discharge. * Improving on CBC 09/17/2017. Stable on labs 09/18/2017. Thrombocytopenia improving on CBC 09/17/2017 and 09/18/2017. Prophylaxis. 4 weeks out from injury as of 09/30/2017, and now independent in room. Stop enoxaparin and pantoprazole starting 10/01/2017. FOLLOWUP: He is recommended to follow up with Dr. Hoang of the trauma service in approximately 2 weeks or the week of 09/30/2017. He is to follow up with orthopedic surgeon, Dr. Patricio Bell after discharge. Dr. Bell's clinic phone number is [phone]. PCP is Anthony Purcell. DISPOSITION: Needs to be able to climb multiple steps to be able to return home. Did well in home visit home visit. Discharge tomorrow, 10/01/2017. 09/30/17 11:12 Subjective: Independent in his room as of yesterday. No complaints, working with therapies. Sometimes unexpectedly gets increased pain, left ribs and pelvis. Bowels moving. No cough or dyspnea, no fevers or chills. Objective: Vital Signs Temp Pulse Resp BP Pulse Ox 36.9 C 71 16 126/87 H 96 09/30/17 05:35 09/30/17 05:35 09/30/17 05:35 09/30/17 06:31 09/30/17 05:35 Laboratory Results 09/18/17 06:00 09/20/17 13:48 09/29/17 09/30/17 10/01/17 05:59 05:59 05:59 Intake Total 1036 300 500 Output Total 800 Balance 1036 -500 500 PT 15.6 SEC (12.0-15.0) H 09/18/17 06:00 INR 1.22 (0.83-1.16) H 09/18/17 06:00 Physical Exam - Physical Exam General Appearance: WD/WN, alert, no apparent distress Respiratory: normal breath sounds, No crackles, No rhonchi, No wheezing Cardiac/Chest: regular rate, rhythm, No edema, No diastolic murmur, No systolic murmur Skin: normal color, warm/dry Neuro/Psych: no motor/sensory deficits, alert, normal mood/affect, oriented x 3 ICD10 Worksheet Patient Problems: Problems Problem Status Onset Bilateral pubic rami fractures Acute Cirrhosis of liver Acute Fall from ladder Acute Hemothorax on left Acute LAD (lymphadenopathy), mediastinal Acute Left pulmonary contusion Acute Multiple fractures of ribs of left side Acute Sacral fracture, closed Acute Splenic hemorrhage Acute Splenic laceration Acute Thrombocytopenia Acute
--- NOTE | 2017-09-30 09:37 | PDOREHIP ---
Admission [facility] - Admission - 3 Day Assessment Period Admission Date/Day 1: 09/16/17 Day 2: 09/17/17 Day 3: 09/18/17 Discharge [facility] - Discharge - 3 Day Assessment Period 2 Days Prior to Anticipated Discharge Date: 09/29/17 1 Day Prior to Anticipated Discharge Date: 09/30/17 Anticipated Discharge Date: 10/01/17 - Discharge Skin Conditions Unhealed Pressure Ulcer (1 or more/Stage 1 or >)-Discharge: 0. No
[2017-09-30] MEDS: PATCH REMOVAL 1 EA PATCH TD SCH (20:48)
[2017-10-01] MEDS: oxyCODONE IR 5 MG TAB PO PRN ×3 (02:42→11:30)
[2017-10-01] MEDS: ACETAMINOPHEN 325 MG TAB PO SCH (06:00)
[2017-10-01] MEDS: ACYCLOVIR 400 MG TAB PO SCH ×2 (06:01→07:54)
[2017-10-01 06:43] VITALS: BP 110/70
[2017-10-01] MEDS: PRESERVISION AREDS2 FORMULA EYE VIT 1 EACH PO SCH (07:50)
[2017-10-01] MEDS: ARNICA MONTANA PO SCH (07:50)
[2017-10-01] MEDS: LIDOCAINE 4%/MENTHOL 1% PATCH TD SCH (07:51)
[2017-10-01] MEDS: LACTULOSE 20 GM/30 ML UDCUP PO SCH (07:51)
[2017-10-01] MEDS: MULTIVITAMINS 1 EACH TAB PO SCH (07:52)
[2017-10-01] MEDS: PANTOPRAZOLE SODIUM 40 MG TAB PO SCH (07:53)
[2017-10-01] MEDS: RIFAXIMIN 550 MG TAB PO SCH (07:53)
[2017-10-01] MEDS: SENNOSIDES/DOCUSATE SODIUM TAB PO SCH (07:54)
[2017-10-01] MEDS: morphINE SR 15 MG TAB PO SCH (07:55)
--- NOTE | 2017-10-01 17:41 | GDS ---
[f rep st] DISCHARGE SUMMARY ADMISSION DIAGNOSIS: Debility, status post fall and pelvic and rib fractures, with toe-touch weightbearing on the left-lower extremity. DISCHARGE DIAGNOSIS: Debility, status post fall and pelvic and rib fractures, with toe-touch weightbearing on the left-lower extremity. OTHER DISCHARGE DIAGNOSES: Traumatic brain injury, hepatic cirrhosis, and thrombocytopenia. CONSULTATIONS: There were none. PROCEDURES: There were none. COMPLICATIONS: There were none. HISTORY AND HOSPITAL COURSE: This patient came to [facility] from [facility]. He had presented there on 09/09/2017, after a 14 foot fall from a ladder. He suffered multiple pelvic fractures and rib fractures of ribs 6 through 9 on the left. He also suffered a traumatic brain injury, though imaging did not show any intracranial hemorrhages. He had considerable pain control issues. He was otherwise medically stabilized and discharged to Inpatient Rehabilitation. He did well in the rehabilitation setting. Initial functional independence measure was 77 on 09/20/2017, which is consistent with [facility] level of care. He was needing assistance with mobility and ADLs including dressing and bathing. He was noted to have difficulty complying with the weightbearing restriction. His functional independence measure improved to 83 as of 09/25/2017, which is consistent with assisted living facility level of care. He was able to climb and descend 9 stairs with 1 rail and 1 crutch with contact guard assist to standby assist. He continued to have difficulty retaining strategies for touchdown weightbearing. A pelvic x-ray was obtained and his condition was discussed with his Orthopedic Surgeon, Dr. Bell, who felt that he needed to continue to maintain the touchdown weightbearing status. With continued cuing and reminders, he eventually improved. He achieved modified independence with a front-wheeled walker for bed mobility and transfers. He ambulated 150 feet or more using the front-wheeled walker with modified independence. He achieved independence for upper and lower body dressing. He had modified independence with an assistive device for toileting and modified independence for transfers to the toilet or for bath transfer. Regarding cognitive effects of traumatic brain injury, he had impaired functional memory and attention to detail. He had some improvement in these domains, but continued to have impairment. Some of these impairments may have been pre-existing. Regarding pain management, morphine sustained-release 15 mg twice a day was initiated in order to give him a baseline of pain control overnight and during the day. He continued on oxycodone 5 to 15 mg every 3 hours p.r.n.; in his last several days, he was using approximately 45 to 60 mg of oxycodone in 3 or 4 doses through the day. He had a trial of ibuprofen, which did not appear to help, so it was discontinued. He was using occasional methocarbamol. He had pre-existing, chronic opioid use for chronic back pain. He reported that he had previously been able to decrease his opioid use from approximately 100 mg a week to approximately 40 mg a week, and he is referred to [facility] for continued management of opioid dependence and pain after his discharge. He initially had thrombocytopenia and a coagulopathy likely related to hepatic cirrhosis. He additionally had anemia. On subsequent laboratory testing, anemia was stable, coagulopathy was resolving with a PT of 15.6, an INR of 1.22 , and a PTT of 33.3, and his thrombocytopenia was resolving. On 09/18/2017, hemoglobin was 8.9, hematocrit was 27, and platelet count was 122. At this time , he was initiated on prophylactic anticoagulation with enoxaparin. This was discontinued once he achieved independence in his room and was 3 weeks out from his injury, on 09/30/2017. DISCHARGE PLAN: Condition upon discharge is good. ACTIVITY: Ad arely, but to maintain touchdown weightbearing likely for a full 6 weeks after his injury. He is not to be driving while his weightbearing is restricted and while he is on higher doses of opiates. DIET: Regular. FOLLOWUP: He will have followup with Orthopedic Surgeon, Dr. Patricio Bell, after his discharge. MEDICATIONS ON DISCHARGE: 1. Acetaminophen 650 mg 3 times daily at 0600, 1400, and 2200. 2. Acyclovir 400 mg 5 times a day, to be completed 10/01/2017. 3. [place] 30C, 3 times daily. 4. PreserVision multivitamins 2 p.o. twice daily with meals. 5. Ibuprofen 600 mg p.o. q.6 hours p.r.n. 6. Lactulose 20 g p.o. twice daily. 7. Lidocaine patch p.r.n. 8. Methocarbamol 1000 mg 4 times daily p.r.n. 9. Multivitamin 1 p.o. daily. 10. Oxycodone 5 to 15 mg p.o. q.3 to 4 hours p.r.n. 11. Polyethylene glycol 17 g p.o. daily. 12. Propranolol 10 to 20 mg p.o. twice daily p.r.n. anxiety. 13. Rifaximin 500 mg p.o. twice daily. 14. Senna/docusate 2 tabs p.o. twice daily. 15. Artificial Tears p.r.n. ISSUES TO BE ADDRESSED AT FOLLOWUP: 1. Weightbearing status: He will continue touchdown weightbearing until cleared by Orthopedic Surgeon, Dr. Bell. He will continue PT and OT, and home health care. 2. Traumatic brain injury with deficits to memory and attention to detail: He will continue speech and language pathology initially as home care. He can follow up with his primary care provider regarding issues of mobility and cognition. 3. Pain control: He has been given adequate pain medications for approximately 7 to 10 days after discharge and he can follow up with both Dr. Bell and his primary care provider as well as Serge Rouse regarding chronic pain management and opiate dependence. 4. Hepatic cirrhosis remained compensated with improvement in coagulopathy and thrombocytopenia during his stay. He can follow up with his primary care provider. /[id number]/MODL [id number]
== END 2017-10-01 13:19 | disposition home health service (06) | DRG 945 ==
LOC: BREH 13:52
PROVIDERS: ADMIT Internal Medicine; ATTEND Internal Medicine
DX: S06.300D Unspecified focal traumatic brain injury without loss of consciousness, subsequent encounter (principal); S22.42XD Multiple fractures of ribs, left side, subsequent encounter for fracture with routine healing; S27.321D Contusion of lung, unilateral, subsequent encounter; S32.119D Unspecified Zone I fracture of sacrum, subsequent encounter for fracture with routine healing; S32.511D Fracture of superior rim of right pubis, subsequent encounter for fracture with routine healing; S32.512D Fracture of superior rim of left pubis, subsequent encounter for fracture with routine healing; S32.592D Other specified fracture of left pubis, subsequent encounter for fracture with routine healing; W11.XXXD Fall on and from ladder, subsequent encounter; Y92.9 Unspecified place or not applicable; Y99.8 Other external cause status; R41.840 Attention and concentration deficit; R41.841 Cognitive communication deficit; R41.89 Other symptoms and signs involving cognitive functions and awareness; D62 Acute posthemorrhagic anemia; B18.2 Chronic viral hepatitis C; K74.60 Unspecified cirrhosis of liver; F41.9 Anxiety disorder, unspecified; K59.00 Constipation, unspecified; F10.21 Alcohol dependence, in remission
CPT/HCPCS: 92507-GN; 92523-GN; 97110-GP; 97116-GP; 97162-GP; 97165-GO; 97530-GO; 97530-GP; 97535-GO; 97542-GO; 97542-GP; G0515-GO; J1650